=== PATIENT | female | born 1950 | race Caucasian/White ===

== ENCOUNTER → 2017-04-19 | Outpatient (CLI) | payer MEDICARE, OTHER ==
[~2017-04-19] MED LIST: ACET500C PO; ALPR0.5T3 PO; BENT10CA PO; BISA10SU PR; BISA5TAB7 PO; BRIN10TA PO; CARB50IN13 IV; DEXA4TA PO; GASTROGRAFIN SOLUTION 30ML (Q9963) As Ordered ONE; ISOVUE-370 76% 100ML VIAL (Q9967) As Ordered ONE; LACT10SO29 PO; METH5TA PO; MIRA33504 PO; MORP15TA2 PO; PRIL20CA9 PO; SENN8.6T8 PO; ZOFR8TAB PO; [UNRECOGNIZED DRUG - CODE] IV
--- NOTE | 2017-04-19 16:32 | REP ---
CT of the chest with IV contrast: Comparisons are 11/03/2015 and 07/06/2016. There are no lung masses or nodules. There is a focal zone of parenchymal scarring in the posterior sulcus of the right lower lobe, unchanged from 07/06/2016. There are no acute infiltrates. There are no pleural effusions. There is no mediastinal or hilar adenopathy. There is no axillary adenopathy. Thoracic aorta is unremarkable. Cardiac size normal. There is no pericardial effusion. On the coronal images. There is mild thickening of the hepatic capsule, decreased from 11/03/2015 and not as nodular as on 11/03/2015. A there is a similar appearance to 07/06/2016. Impression: No evidence of metastatic disease, adenopathy or pleural effusion. There is a focal parenchymal scar in the posterior sulcus of the right lower lobe. The capsular thickening in the dome of the liver is decreased from 11/03/2015 and is similar appearance to 07/06/2016. Signed by Jairo Ren MD 04/19/2017 04:24 P
--- NOTE | 2017-04-19 16:48 | REP ---
CT of the abdomen pelvis without with IV contrast and with bowel contrast. Multiphase scanning after IV contrast: Comparisons are 07/06/2016 and 11/03/2015. The capsular thickening of the liver has significantly decreased from 2015. Is similar to 07/06/2016. On the current study there is a subcapsular 3.9 cm cyst along the lateral margin of the liver, not present on the comparison studies. No hepatic parenchymal masses are identified. They are enhancing nodules along the wall of the gallbladder particularly at the fundus compatible with metastatic implants. These have increased in size from 11/03/2015. They were not present on 07/06/2016. There are numerous confluent enlarged mesenteric nodes at the tip of the liver, increased in size and number from 11/03/2015. They were not present on 07/06/2016. There are other mesenteric nodes in the left upper quadrant adjacent to the spleen, not present previously. The pancreas and spleen are otherwise unremarkable. The adrenals and kidneys are unremarkable. Abdominal aorta is unremarkable. There is no periaortic/retroperitoneal adenopathy. There is no adenopathy in the pelvis. There is a hysterectomy. Vaginal cuff and adnexa are unremarkable. There is a small volume of ascites in the cul-de-sac. Urinary bladder is unremarkable. There is no bowel distension. The pelvic bowel loops are unremarkable. Impression: The capsular thickening of the liver is unchanged from 07/06/2016 and has decreased from 11/03/2015. There are numerous confluent enlarged mesenteric nodes at the tip of the liver and adjacent to the spleen, not present on 07/06/2016 but increased in number and size from 11/03/2015. Small volume of ascites in the pelvis. There is no retroperitoneal or pelvic adenopathy. There are no lytic, blastic or destructive skeletal lesions. There is a small density posteriorly in the left iliac wing, unchanged from 11/03/2015, likely a bone island. Signed by Jairo Ren MD 04/19/2017 04:40 P
== END ==
LOC: M RAD 14:22
PROVIDERS: ATTEND Obstetrics & Gynecology Gynecologic Oncology
DX: C54.1 Malignant neoplasm of endometrium (principal); R93.2 Abnormal findings on diagnostic imaging of liver and biliary tract; R18.8 Other ascites
CPT/HCPCS: 71260; 74178; Q9963; Q9967

== ENCOUNTER → 2017-08-30 | Outpatient (CLI) | payer MEDICARE, OTHER ==
[~2017-08-30] MED LIST changes: -ACET500C PO; -ALPR0.5T3 PO; -BENT10CA PO; -BISA10SU PR; -BISA5TAB7 PO; -BRIN10TA PO; -CARB50IN13 IV; -DEXA4TA PO; +GASTROGRAFIN SOLUTION 30ML (Q9963) As Ordered; -GASTROGRAFIN SOLUTION 30ML (Q9963) As Ordered ONE; +ISOVUE-370 76% 100ML VIAL (Q9967) As Ordered; -ISOVUE-370 76% 100ML VIAL (Q9967) As Ordered ONE; -LACT10SO29 PO; -METH5TA PO; -MIRA33504 PO; -MORP15TA2 PO; -PRIL20CA9 PO; -SENN8.6T8 PO; -ZOFR8TAB PO; -[UNRECOGNIZED DRUG - CODE] IV
== END ==
LOC: M RAD 10:46
DX: C54.1 Malignant neoplasm of endometrium (principal)
CPT/HCPCS: Q9963

== ENCOUNTER → 2017-10-31 | Outpatient (CLI) | payer MEDICARE, OTHER | LOC: M RAD 08:21 | DX: C56.9 Malignant neoplasm of unspecified ovary (principal); C78.6 Secondary malignant neoplasm of retroperitoneum and peritoneum | CPT/HCPCS: Q9963 ==

== ENCOUNTER → 2018-01-02 | Outpatient (CLI) | payer MEDICARE, OTHER | LOC: M RAD 12:20 | DX: C54.1 Malignant neoplasm of endometrium (principal) | CPT/HCPCS: Q9963 ==

== ENCOUNTER → 2018-03-06 | Outpatient (CLI) | payer MEDICARE, OTHER | LOC: M RAD 08:45 | DX: C54.1 Malignant neoplasm of endometrium (principal); R59.0 Localized enlarged lymph nodes | CPT/HCPCS: Q9963 ==

== ENCOUNTER → 2018-03-23 | Outpatient (REF) | payer MEDICARE, OTHER ==
[2018-03-23 15:56] LABS: CA 125 24.1 U/ML (<30.2)
== END ==
LOC: M LAB REF 13:18
DX: C54.1 Malignant neoplasm of endometrium (principal)
CPT/HCPCS: 86304

== ENCOUNTER → 2018-06-15 | Outpatient (CLI) | payer MEDICARE, OTHER | LOC: M RAD 11:01 | DX: C54.1 Malignant neoplasm of endometrium (principal) | CPT/HCPCS: Q9963 ==

== ENCOUNTER → 2018-08-31 | Outpatient (REF) | payer MEDICARE, OTHER ==
[~2018-08-31] MED LIST changes: +ACET500C PO; +ALPR0.5T3 PO; +BENT10CA PO; +BISA10SU PR; +BISA5TAB7 PO; +BRIN10TA PO; +CARB50IN13 IV; +DEXA4TA PO; +DULO1CAP2 PO; +GABA-843 PO; -GASTROGRAFIN SOLUTION 30ML (Q9963) As Ordered; -ISOVUE-370 76% 100ML VIAL (Q9967) As Ordered; +LACT10SO29 PO; +LEVO500T3 PO; +METH5TA PO; +MIRA33504 PO; +MORP15TA2 PO; +PRIL20CA9 PO; +REST0.05 OD; +REST0.05 OP; +SENN8.6T9 PO; +ZOFR8TAB24 PO; +[UNRECOGNIZED DRUG - CODE] IV
[2018-08-31 10:48] LABS: TOTAL PROTEIN 5.8 GM/DL (6.4-8.2)
[2018-08-31 10:55] LABS: VITAMIN B12 LEVEL 402 PG/ML
[2018-08-31 10:56] LABS: FOLATE 14.5 NG/ML
[2018-09-05 07:21] LABS: ALBUMIN 3.79 GM/DL (3.29-5.55); ALBUMIN % 65.4 % (55.8-66.1); ALPHA-1-GLOBULIN % 4.7 % (2.9-4.9); ALPHA-1-GLOBULINS 0.27 GM/DL (0.17-0.41); ALPHA-2-GLOBULINS 0.81 GM/DL (0.42-0.99); BETA-1-GLOBULINS 0.37 GM/DL (0.28-0.60); BETA-1-GLOBULINS % 6.3 % (4.7-7.2); BETA-2-GLOBULINS 0.23 GM/DL (0.19-0.55); BETA-2-GLOBULINS % 3.9 % (3.2-6.5); GAMMA GLOBULIN % 5.7 % (11.1-18.8); GAMMA GLOBULINS 0.33 GM/DL (0.65-1.58)
[2018-09-05 19:10] LABS: CERULOPLASMIN 28.7 mg/dL (19.0-39.0); VITAMIN B1 LEVEL WHOLE BLOOD 79.4 nmol/L (66.5-200.0); VITAMIN E(ALPHA TOCOPHEROL) 12.2 mg/L (9.0-29.0); VITAMIN E(GAMMA TOCOPHEROL) 2.7 mg/L (0.5-4.9)
== END ==
LOC: M LAB REF 09:58
PROVIDERS: ATTEND Psychiatry & Neurology Neurology
DX: G62.9 Polyneuropathy, unspecified (principal); E53.8 Deficiency of other specified B group vitamins; E51.9 Thiamine deficiency, unspecified; Z77.018 Contact with and (suspected) exposure to other hazardous metals

== ENCOUNTER → 2018-09-26 | Outpatient (CLI) | payer MEDICARE, OTHER ==
[~2018-09-26] MED LIST changes: +DULO30CA PO; +GASTROGRAFIN SOLUTION 30ML (Q9963) As Ordered ONE; +ISOVUE-370 76% 100ML VIAL (Q9967) As Ordered ONE
--- NOTE | 2018-09-26 14:07 | REP ---
CT of the chest with IV contrast: Comparisons are 03/06/2018 and 06/15/2018. There are no acute infiltrates. No pleural effusions. There is chronic fibro linear scarring in the left lower lobe and lingula, unchanged. A small bilateral lower lobe pleural-based nodular densities identified previously have decreased in size. There is bilateral hilar adenopathy not significantly changed measuring up to 14 mm short axis on the right and 12 mm short axis on the left. There is no mediastinal lymph node enlargement. There is no axillary lymph node enlargement. There are no other lung nodules or masses. There are no acute infiltrates or effusions. Impression: Enlarged hilar nodes bilaterally that appear stable from the prior studies. No lung nodules or masses. The small pleural based nodules identified previously in the lower lobes have decreased in size. Chronic curvilinear scarring in the left lower lobe and lingula is unchanged. There is no significant interval change. Electronically Signed by Jairo Ren MD 09/26/2018 01:58 P
--- NOTE | 2018-09-26 14:29 | REP ---
CT of the abdomen and pelvis with IV and oral contrast: Comparison is 06/15/2018. The hepatic parenchyma is homogeneous. The gallbladder, pancreas and spleen are unremarkable. The adrenals, kidneys and abdominal aorta are unremarkable. There is no periaortic adenopathy or mass. There are multiple small omental/peritoneal implants on the right versus mesenteric nodes, not significantly changed. Nodular densities in the axilla are unchanged of uncertain significance. There is a hysterectomy. Vaginal cuff and adnexa are otherwise unremarkable. The bladder is unremarkable. Bowel and mesentery are unremarkable. No ascites. Impression: The mesenteric/omental and a pelvic and nodular densities are stable and unchanged. No ascites. No mass. No interval change. Half sign taking Electronically Signed by Jairo Ren MD 09/26/2018 02:21 P
== END ==
LOC: M RAD 11:22
PROVIDERS: ATTEND Internal Medicine Hematology & Oncology
DX: C54.1 Malignant neoplasm of endometrium (principal); R91.8 Other nonspecific abnormal finding of lung field; J98.4 Other disorders of lung
CPT/HCPCS: 71260; 74177; Q9963; Q9967

== ENCOUNTER → 2018-09-28 | Outpatient (CLI) | payer MEDICARE, OTHER ==
[~2018-09-28] MED LIST changes: -GASTROGRAFIN SOLUTION 30ML (Q9963) As Ordered ONE; -ISOVUE-370 76% 100ML VIAL (Q9967) As Ordered ONE
[2018-09-28 12:43] LABS: TOTAL PROTEIN,RANDOM URINE 6.7 MG/DL (0.0-12.0)
[2018-09-28 12:56] LABS: HEMOGLOBIN A1c 5.4 %
[2018-10-04 08:06] LABS: ANTI MAG LEVEL <1:10 titer (.)
== END ==
LOC: M LAB 10:38
PROVIDERS: ATTEND Psychiatry & Neurology Neurology
DX: G62.9 Polyneuropathy, unspecified (principal); E11.9 Type 2 diabetes mellitus without complications; C54.1 Malignant neoplasm of endometrium

== ENCOUNTER → 2018-12-24 | Outpatient (REF) | payer MEDICARE, OTHER ==
[~2018-12-24] MED LIST changes: -DULO30CA PO; +DULO30CA9 PO; +PACL1INJ2 IV; +SENN1TAB36 PO; -SENN8.6T9 PO; -[UNRECOGNIZED DRUG - CODE] IV
== END ==
LOC: M LAB REF 12:29
PROVIDERS: ATTEND Physician Assistant
DX: C56.9 Malignant neoplasm of unspecified ovary (principal)

== ENCOUNTER → 2019-05-13 | Outpatient (CLI) | payer MEDICARE, OTHER ==
[~2019-05-13] MED LIST changes: -DULO1CAP2 PO; +DULO1CAP5 PO; +GASTROGRAFIN SOLUTION 30ML (Q9963) As Ordered ONE; +ISOVUE-370 76% 100ML VIAL (Q9967) As Ordered ONE
--- NOTE | 2019-05-13 10:32 | REP ---
Clinical: Endometrial carcinoma. Restaging. Technique: Axial contrast enhanced images from the thoracic inlet to the upper abdomen with coronal and sagittal re-formations using 100 ml Isovue 370 intravenous contrast material. Comparison: 02/04/2019. Findings: Chronic stable linear scarring at the right base and lingula along with mild chronic diffuse interstitial changes are again appreciated. No consolidation, significant nodule, or mass lesion identified. Prominent bilateral hilar lymph nodes measuring up to approximately 12-14 mm again noted and similar to prior examination. No effusion. No pneumothorax. Tracheobronchial tree is patent. Mediastinum demonstrates normal thoracic aorta, pulmonary vasculature and heart/pericardium. Subtle atherosclerotic changes to the coronary arteries noted. Musculoskeletal structures are intact without focal abnormality. Impression: Stable chronic changes at the lingula and right base. Stable hilar lymph nodes. No acute mediastinal or pleuroparenchymal process appreciated. Electronically Signed by Jules Grande MD 05/13/2019 10:24 A
--- NOTE | 2019-05-13 10:41 | REP ---
Clinical: Endometrial carcinoma. Restaging. Technique: Axial contrast enhanced images from the lung bases to the pubic symphysis using oral (per protocol) and 100 ml Isovue 370 intravenous contrast material. Precontrast and delayed images of the abdomen obtained along with coronal and sagittal re-formations. Comparison: 02/04/2019, 09/26/2018. Findings: Scattered peritoneal metastatic nodules and soft tissue mass lesions are identified and increased when compared to prior examination. As example, the largest metastatic lesion is identified along the anterior lower abdomen and measures roughly 2.1 cm maximal diameter (image 76) along with increased metastatic nodules identified in the infrahepatic right lower abdomen (images 60 - 72). There also appears to be enlarging nodular soft tissue in the left hemipelvis measuring roughly approximately 2.3 cm maximal diameter (images 108 - 118). Liver, spleen, pancreas, gallbladder, bilateral adrenal glands and kidneys are normal / stable. The enteric system is without obstruction or acute inflammatory process. Colonic/sigmoid diverticula noted without acute diverticulitis. Pelvis demonstrates normal bladder and evidence for prior hysterectomy. No ascites. No free air. No intraperitoneal or retroperitoneal adenopathy. Abdominal aorta and vasculature without aneurysm or dissection. Musculoskeletal structures demonstrate degenerative changes without focal abnormality. Impression: 1. Increased intraperitoneal and pelvic metastatic implants. 2. Diverticulosis without acute diverticulitis. 3. No ascites. Electronically Signed by Jules Grande MD 05/13/2019 10:34 A
== END ==
LOC: M RAD 08:16
PROVIDERS: ATTEND Internal Medicine Hematology & Oncology
DX: C54.1 Malignant neoplasm of endometrium (principal); J84.9 Interstitial pulmonary disease, unspecified; I25.10 Atherosclerotic heart disease of native coronary artery without angina pectoris; K57.30 Diverticulosis of large intestine without perforation or abscess without bleeding; C78.6 Secondary malignant neoplasm of retroperitoneum and peritoneum
CPT/HCPCS: 71260; 74178; Q9963; Q9967

== ENCOUNTER → 2019-06-07 | Outpatient (CLI) | payer MEDICARE, OTHER ==
[~2019-06-07] MED LIST changes: -GASTROGRAFIN SOLUTION 30ML (Q9963) As Ordered ONE; -ISOVUE-370 76% 100ML VIAL (Q9967) As Ordered ONE
--- NOTE | 2019-06-07 20:27 | ECHO ---
DATE OF PROCEDURE: 06/07/2019 Date of : 1950 Age: 68 Gender: Female Height: 67 inches Weight: 183 pounds Body surface area: 1.95 meters squared Outpatient. REFERRING PHYSICIAN: Dr. Matthew Callaway INDICATION: Potentially cardiotoxic chemotherapy. MEASUREMENTS: 2D Measurements: RV: 3.4 cm LV: 4.6 cm Septum: 1.0 cm Posterior wall: 0.9 cm Aortic root: 2.6 cm LA: 3.6 cm LVEF: 75% Doppler Measurements: AV: 1.23 meters per second LVOT: 1.09 meters per second LVOT diameter: 2.0 cm MV-E: 48, A: 54, EA ratio: 0.8 Early mitral deceleration time: 197 milliseconds E prime medial: 6.7, A prime medial: 7.0, E prime lateral: 10.9 Average E/E prime ratio: 5.5 Pulmonary capillary wedge pressure: 8.3 mmHg PV: 0.9 meters per second Pulmonary artery acceleration time: 120 milliseconds RVSP: 29 mmHg IVC: 1.5 cm COMMENTS: Normal sinus rhythm/sinus bradycardia without intraventricular conduction disturbance. M-mode and two-dimensional echocardiography was performed with pulsed, continuous wave, color flow and tissue Doppler studies. Normal left ventricular size, wall thickness and hyperkinetic wall motion. Normal left atrial size with grade 2 left ventricular (LV) diastolic dysfunction but currently normal estimated mean left atrial pressure (physiologic for age). Normal right heart chamber sizes and motion and estimated pulmonary arterial pressure. Normal inferior vena cava (IVC) size and collapse against an elevated central venous pressure. Mild aortic valvular sclerosis without functional abnormality. Normal aortic diameters. Slightly thickened mitral annulus but normal leaflet excursion and no posterior systolic buckling. Only trace mitral insufficiency. Normal appearing tricuspid valve with mild insufficiency. No apparent intracardiac mass or pericardial effusion. MTDD
== END ==
LOC: M CARPUL 10:47
PROVIDERS: ATTEND Internal Medicine Hematology
DX: C54.1 Malignant neoplasm of endometrium (principal); R00.1 Bradycardia, unspecified; I36.1 Nonrheumatic tricuspid (valve) insufficiency

== ENCOUNTER → 2019-07-24 | Outpatient (CLI) | payer MEDICARE, OTHER ==
[~2019-07-24] MED LIST changes: +GASTROGRAFIN SOLUTION 30ML (Q9963) As Ordered ONE; +IBUP1TAB6 PO; +ISOVUE-370 76% 100ML VIAL (Q9967) As Ordered ONE; +PROC10TA4 PO
--- NOTE | 2019-07-24 16:55 | REP ---
CT CHEST WITH CONTRAST: TECHNIQUE: Axial contrast enhanced images from the thoracic inlet to the upper abdomen using 100 mL Isovue 370 intravenous contrast material with multiplanar reformations. COMPARISON: 05/13/2019 There is a stable 3 mm nodule anteriorly in the right upper lobe. There are mild stable fibro atelectatic changes in both lower lobes. No new parenchymal abnormality is seen. Normal size mediastinal and hilar lymph nodes are present. There is no axillary adenopathy. There is no thoracic aortic aneurysm or dissection. The heart is normal in size. There is no pleural or pericardial effusion. There are degenerative changes of the spine. IMPRESSION: Stable chronic findings. No change since prior study of 05/13/2019. Electronically Signed by Jairo Arciniega MD 07/24/2019 08:04 P
--- NOTE | 2019-07-24 17:17 | REP ---
CT ABDOMEN AND PELVIS WITH ORAL AND IV CONTRAST: TECHNIQUE: Axial contrast enhanced images from the lung bases to the pubic symphysis using 100 mL Isovue 370 intravenous contrast material with multiplanar reformations. COMPARISON: 02/04/2019 as well as other prior exams. The liver demonstrates no mass. The spleen demonstrates multiple tiny hypodensities throughout which are not definitely seen on prior studies. I cannot exclude metastatic disease to the spleen. Adrenal glands demonstrate no mass. Pancreas is unremarkable. Small cyst is seen anteriorly in the left kidney. No periaortic adenopathy is seen and there is no abdominal aortic aneurysm. There is no free air or free fluid. There is significant increase in omental and mesenteric nodules when compared to prior study. Multiple new nodules are seen in the subhepatic region, the largest is 1.5 cm in diameter. A dominant midline soft tissue nodule has irregular margins, in the lower abdomen, measuring 2.7 cm in diameter. Multiple small nodules are seen in the left upper quadrant up to 1 cm in diameter, located in the omentum and peritoneal space. New nodule is seen in the left adnexal region which is somewhat elongated. At its epicenter it measures 2.8 x 2.1 cm. No other pelvic mass is seen. There is sigmoid diverticulosis without acute diverticulitis. There also appear to be small implants on the fundus of the gallbladder posteriorly. Stable bone lesion since 2016 again noted in the proximal right femur. IMPRESSION: Significant increase in size of right upper quadrant peritoneal implants with several new left upper quadrant implants and a central midline mesenteric nodule. This is in the lower abdomen in the midline. Increased size of left pelvic soft tissue mass. Multiple new subcentimeter hypodense nodules in the spleen. I cannot rule out metastatic disease. Electronically Signed by Jairo Arciniega MD 07/24/2019 08:05 P
== END ==
LOC: M RAD 10:47
PROVIDERS: ATTEND Internal Medicine Hematology
DX: C54.1 Malignant neoplasm of endometrium (principal); R91.1 Solitary pulmonary nodule; N28.1 Cyst of kidney, acquired; K57.30 Diverticulosis of large intestine without perforation or abscess without bleeding; D73.9 Disease of spleen, unspecified
CPT/HCPCS: 71260; 74177; Q9963; Q9967

== ENCOUNTER 2019-08-05 12:37 | Day surgery (SDC) | payer MEDICARE, OTHER ==
[~2019-08-05] VITALS: Ht 170.2 cm; Wt 78.9 kg
[~2019-08-05 12:37] MED LIST changes: -GASTROGRAFIN SOLUTION 30ML (Q9963) As Ordered ONE; -ISOVUE-370 76% 100ML VIAL (Q9967) As Ordered ONE; +NS 1,000 ML IV ONE; +SENN1TAB8 PO; +SENN8.6T58 PO
[2019-08-05] MEDS ORDERED: propofoL 200 MG/20 ML VIAL As Ordered ONE ×2 (13:56→14:25)
[2019-08-05] MEDS ORDERED: LIDOCAINE 2% INJ 100 MG/5 ML SDV (FOR ANES.) As Ordered ONE (13:56)
--- NOTE | 2019-08-05 14:17 | ROOR ---
Patient Name: Haleigh Meade Procedure Date: 08/05/2019 1:59 PM Date of : 1950 Age: 68 Room: [facility] Gender: Female Note Status: Finalized Procedure: Upper Endoscopy + Biopsies Indications: Epigastric abdominal pain, Heartburn, Early satiety Providers: Jorge Blandon MD Referring MD: Brayan Simms MD Requesting Provider: Medicines: Monitored Anesthesia Care Complications: No immediate complications. Procedure: Pre-Anesthesia Assessment: - The heart rate, respiratory rate, oxygen saturations, blood pressure, adequacy of pulmonary ventilation, and response to care were monitored throughout the procedure. The Endoscope was introduced through the mouth, and advanced to the second part of duodenum. The upper GI endoscopy was accomplished without difficulty. The patient tolerated the procedure well. Findings: The Z-line was regular and was found 35 cm from the incisors. Multiple biopsies were obtained with cold forceps for evaluation to rule out Partida's Esophagus randomly at the gastroesophageal junction. A small hiatal hernia was present. No other significant abnormalities were identified in a careful examination of the stomach. Biopsies were taken with a cold forceps in the gastric antrum for Helicobacter pylori testing. The exam of the duodenum was otherwise normal. Impression: - Z-line regular, 35 cm from the incisors. - Small hiatal hernia. - Multiple biopsies were obtained at the gastroesophageal junction. - Biopsies were taken with a cold forceps for Helicobacter pylori testing. - The examination was otherwise normal. Recommendation: - Patient has a contact number available for emergencies. The signs and symptoms of potential delayed complications were discussed with the patient. Return to normal activities tomorrow. Written discharge instructions were provided to the patient. - High fiber diet. - Discharge patient to home. - Follow an antireflux regimen. - Await pathology results. - Telephone GI clinic for pathology results in 1 week. - Return to referring physician. - The findings and recommendations were discussed with the patient's family. Jorge Blandon MD Jorge Blandon MD 08/05/2019 2:17:05 PM Electronically signed by Jorge Blandon MD Number of Addenda: 0 Note Initiated On: 08/05/2019 1:59 PM Estimated Blood Loss: Estimated blood loss: none.
--- NOTE | 2019-08-05 14:38 | ROOR ---
Patient Name: Haleigh Meade Procedure Date: 08/05/2019 2:00 PM Date of : 1950 Age: 68 Room: [facility] Gender: Female Note Status: Finalized Procedure: Total Colonoscopy to Cecum Indications: Abdominal pain in the right lower quadrant, Change in bowel habits Providers: Jorge Blandon MD Referring MD: Brayan Simms MD Requesting Provider: Medicines: Monitored Anesthesia Care Complications: No immediate complications. Procedure: Pre-Anesthesia Assessment: - The heart rate, respiratory rate, oxygen saturations, blood pressure, adequacy of pulmonary ventilation, and response to care were monitored throughout the procedure. The Colonoscope was introduced through the anus and advanced to the cecum, identified by appendiceal orifice and ileocecal valve. The colonoscopy was performed without difficulty. The patient tolerated the procedure well. The quality of the bowel preparation was excellent. Findings: The perianal and digital rectal examinations were normal. Non-bleeding internal hemorrhoids were found during retroflexion. The hemorrhoids were small and Grade I (internal hemorrhoids that do not prolapse). Multiple small and large-mouthed diverticula were found in the recto-sigmoid colon, sigmoid colon and descending colon. The exam was otherwise without abnormality on direct and retroflexion views. Impression: - Non-bleeding internal hemorrhoids. - Diverticulosis in the recto-sigmoid colon, in the sigmoid colon and in the descending colon. - The examination was otherwise normal on direct and retroflexion views. - No specimens collected. - The exam was otherwise normal to the cecum. Recommendation: - Patient has a contact number available for emergencies. The signs and symptoms of potential delayed complications were discussed with the patient. Return to normal activities tomorrow. Written discharge instructions were provided to the patient. - High fiber diet. - Discharge patient to home. - Continue present medications. - Repeat colonoscopy in 10 years for screening purposes. - Return to referring physician. - The findings and recommendations were discussed with the patient's family. Jorge Blandon MD Jorge Blandon MD 08/05/2019 2:38:15 PM Electronically signed by Jorge Blandon MD Number of Addenda: 0 Note Initiated On: 08/05/2019 2:00 PM Estimated Blood Loss: Estimated blood loss: none.
[2019-08-05 15:17] VITALS: BP 140/74
[2019-08-08] MEDS ORDERED: LEVA750T7 PO (16:32)
== END 2019-08-05 15:19 | disposition home or self-care (01) ==
LOC: M OPP 12:37
PROVIDERS: ATTEND Internal Medicine Gastroenterology
DX: K64.0 First degree hemorrhoids (principal); R10.31 Right lower quadrant pain; R19.4 Change in bowel habit; K57.30 Diverticulosis of large intestine without perforation or abscess without bleeding; K44.9 Diaphragmatic hernia without obstruction or gangrene; R10.13 Epigastric pain; R68.81 Early satiety; Z79.899 Other long term (current) drug therapy; Z88.0 Allergy status to penicillin; Z88.2 Allergy status to sulfonamides; Z91.048 Other nonmedicinal substance allergy status

== ENCOUNTER 2019-08-15 20:13 | Inpatient (IN) | payer MEDICARE, OTHER ==
[~2019-08-15] VITALS: Ht 170.2 cm; Wt 80.6 kg
[~2019-08-15 20:13] MED LIST changes: +LEVA750T7 PO; -NS 1,000 ML IV ONE
[2019-08-15] MEDS ORDERED: SODIUM CHLORIDE 0.9% INJ 10 ML SYR IV PRN (22:00)
[2019-08-15] MEDS ORDERED: ACETAMINOPHEN TAB 650MG DOSE (2X325MG) PO ONE (22:00)
[2019-08-15 22:46] LABS: BASO % 0.3 % (0.0-1.0); EOS % 0.6 % (0.0-3.0); HEMATOCRIT 32.7 % (36.0-47.0); HEMOGLOBIN 10.7 g/dl (12.0-15.5); LYMPH # 0.7 10^3/uL (1.5-5.0); LYMPH % 9.9 % (24.0-44.0); MEAN CORPUSCULAR HEMOGLOBIN 29.2 pg (27.0-33.0); MEAN CORPUSCULAR HGB CONC 32.7 g/dl (32.0-36.5); MEAN CORPUSCULAR VOLUME 89.1 fl (80.0-96.0); MONO # 0.5 10^3/uL (0.0-0.8); MONO % 7.4 % (0.0-5.0); NEUTROPHILS # 5.5 10^3/uL (1.5-8.5); NEUTROPHILS % 81.4 % (36.0-66.0); PLATELET COUNT, AUTOMATED 231 10^3/uL (150-450); RED BLOOD COUNT 3.67 10^6/uL (4.00-5.40); WHITE BLOOD COUNT 6.8 10^3/uL (4.0-10.0)
[2019-08-15 23:07] LABS: CREATININE FOR GFR 1.13 MG/DL (0.55-1.30); POTASSIUM SERUM 4.1 MEQ/L (3.5-5.1)
--- NOTE | 2019-08-16 00:20 | REPVR ---
PROCEDURE INFORMATION: Exam: CT Chest Without Contrast Exam date and time: 08/15/2019 11:23 PM Age: 68 years old Clinical indication: Abnormal findings; Other: Cxr infiltrate? ; Additional info: ? Lll infiltrate on cxr TECHNIQUE: Imaging protocol: Computed tomography of the chest without contrast. 3D rendering: MIP and/or 3D reconstructed images were created by the technologist. Radiation optimization: All CT scans at this facility use at least one of these dose optimization techniques: automated exposure control; mA and/or kV adjustment per patient size (includes targeted exams where dose is matched to clinical indication); or iterative reconstruction. COMPARISON: CT Chest with contrast 07/24/2019 12:29 PM FINDINGS: Tubes, catheters and devices: Right Port-A-Cath through the internal jugular system extending to the distal superior vena cava. Thyroid: Inhomogeneous thyroid lobes. Lungs: Right upper lobe and lingular infiltrate and consolidation and minimal left lower lobe infiltrate and atelectasis consistent with pneumonia which is greatest in the lingula. Minimal right lower lobe fibro-atelectatic change. Pleural space: Unremarkable. No pneumothorax. No pleural effusion. Heart: Unremarkable. No cardiomegaly. No pericardial effusion. Pulmonary arteries: The main pulmonary artery measures 25 mm. Aorta: The ascending thoracic aorta measures 31 mm. Lymph nodes: Unremarkable. No enlarged lymph nodes. Bones/joints: Unremarkable. No acute fracture. Soft tissues: Unremarkable. IMPRESSION: 1. Lingular and to a lesser degree left upper lobe and left lower lobe infiltrate, consolidation and atelectasis consistent with pneumonia. 2. Right Port-A-Cath to the distal superior vena cava. 3. Minimal right lower lobe fibro-atelectatic change. Electronically signed by: Cb Matthews On 08/16/2019 00:19:33 AM
[2019-08-16] MEDS ORDERED: DOCU100C16 PO (00:53)
[2019-08-16] MEDS ORDERED: GABA-843 PO (00:53)
[2019-08-16] MEDS ORDERED: CEFEPIME HCL 2 GM in D5W MINI-BAG PLUS 50 ML IV ONE (01:15)
--- NOTE | 2019-08-16 01:25 | HPEPDOC ---
[facility] Medical History & Physical Date of Admission Aug 16, 2019 Date of Service: Aug 16, 2019 Primary Care Physician: Brayan Simms MD Attending Physician: JYOTHI MERRILL MD History and Physical TIME OF SERVICE: 2:20 AM CHIEF COMPLAINT: Fever HISTORY OF PRESENT ILLNESS: This is a 59-year-old female presents with complaints having a fever of 101.8 on Monday. She came to the hospital primarily because her oncologist told her she if has a fever, she should come. She had chemotherapy on August 08. She denies having chest pain, nausea, vomiting, diarrhea, headache, cough, back pain, or sick contacts. REVIEW OF SYSTEMS: 12 point review of systems negative except as listed in HPI PAST MEDICAL/ SURGICAL HISTORY: Stage IV Endometrial cancer, treated by peripheral neuropathy DJD. Status post total abdominal hysterectomy and bilateral salpingo-oophorectomy Status post shoulder surgery. Status post tonsillectomy. Status post port placement SOCIAL HISTORY: She doesn't smoke. 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 HOME MEDICATIONS: Please see below. PHYSICAL EXAMINATION: VITAL SIGNS: Please see below. GEN: well-nourished / well developed/ NAD INTEGUMENT: not flushed/ not jaundice HEENT: NCAT / sclera anicteric CVS: RRR/NMRG/ radial pulses intact / she has a port at the right upper chest LUNGS: able to speak full sentences without stopping to take a breath / no coughing / lungs are clear to auscultation bilaterally on room air / there is some dullness to percussion at the left lower back ABDOMEN: soft & not tender with palpation MSK/EXTREMITIES: range of motion intact in all 4 extremities NEURO: CN 2-12 are grossly intact / speech is not dysarthric PSYCH: alert and oriented to person place and time/ able to understand and follow all commands LABORATORY DATA: See below. IMAGING: CT chest " IMPRESSION: 1. Lingular and to a lesser degree left upper lobe and left lower lobe infiltrate, consolidation and atelectasis consistent with pneumonia. 2. Right Port-A-Cath to the distal superior vena cava. 3. Minimal right lower lobe fibro- atelectatic change. " MICROBIOLOGY: Please see below. ASSESSMENT: Ms. Meade is a 62 old female with a past medical hx of stage IV endometrial cancer who is admitted for management of left-sided community-acquired pneumonia. PLAN: 1. Left-sided community-acquired pneumonia She's generally symptomatic support for runny nose and fever (TMax 101.7) She is not hypoxic CT chest as above CURB 65 score to determine if pt should be admitted = 1 point = outpatient treatment is appropriate. Since she is immunosuppressed we will admit her to the inpatient unit at least for tonight Plan: admit to medical floor./ continuous pulse ox & supplemental O2/ f/u influenza, Legionella, strep pneumo, sputum & blood cx / abx / IVF / tessalon pearls / Acetaminophen PRN for fever 2. Normocytic normochromic anemia. Likely due to malignancy and/or chemotherapy. Hemoglobin is at baseline Plan: Follow-up reticulocyte #, iron panel w ferritin & stool occult / Hold ibuprofen 3. Stage IV endometrial cancer With neuropathy Plan: gabapentin/Follow up with oncologist as scheduled DVT PROPHYLAXIS: Heparin DISPOSITION: Home after more than 2 midnight's stay Vital Signs Vital Signs Date Time Temp Pulse Resp B/P (MAP) Pulse Ox O2 Delivery O2 Flow Rate FiO2 08/15/19 23:59 99.7 08/15/19 23:00 16 128/67 (87) 08/15/19 22:58 80 95 08/15/19 20:15 Room Air Laboratory Data Labs 24H Laboratory Tests 2 08/15/19 22:35: Immature Granulocyte % (Auto) 0.4, Neutrophils (%) (Auto) 81.4H, Lymphocytes (%) (Auto) 9.9L, Monocytes (%) (Auto) 7.4H, Eosinophils (%) (Auto) 0.6, Basophils (%) (Auto) 0.3, Neutrophils # (Auto) 5.5, Lymphocytes # (Auto) 0.7L, Monocytes # (Auto) 0.5, Eosinophils # (Auto) 0.0, Basophils # (Auto) 0.0, Nucleated Red Blood Cells % (auto) 0.0, Anion Gap 5L, Glomerular Filtration Rate 51.0, Calcium Level 8.0L 08/15/19 23:03: Urine Color STRAW, Urine Appearance CLEAR, Urine pH 7.0, Urine Specific Sheldon 1.008, Urine Protein NEGATIVE, Urine Glucose (UA) NEGATIVE, Urine Ketones NEGATIVE, Urine Blood NEGATIVE, Urine Nitrite NEGATIVE, Urine Bilirubin NEGATIVE, Urine Urobilinogen 0.2, Urine Leukocyte Esterase NEGATIVE, Urine WBC (Auto) 3, Urine RBC (Auto) 1, Urine Hyaline Casts (Auto) 0, Urine Bacteria (Auto) NEGATIVE, Urine Squamous Epithelial Cells 0, Urine Sperm (Auto) CBC/BMP Laboratory Tests 08/15/19 22:35 Microbiology Microbiology 08/15/19 Respiratory Virus Panel (PCR) ([facility]) - Final, Complete 08/15/19 Blood Culture, Received Pending 08/15/19 Blood Culture, Received Pending Home Medications Scheduled Docusate Sodium (Docusate Sodium) 100 Mg Capsule, 200 MG PO BID Gabapentin (Gabapentin) 300 Mg Capsule, 900 MG PO TID Ibuprofen (Ibuprofen) 600 Mg Tablet, 600 MG PO TID for pain with food Levofloxacin (Levaquin) 750 Mg Tablet, 1 TAB PO DAILY for urinary tract infection Take 750 mg po q day X 7 days Sennosides (Senna) 8.6 Mg Tablet, 2 TAB PO BID for constipation TAKE 2 TABS 2 TIMES A DAY Scheduled PRN Prochlorperazine Maleate (Prochlorperazine Maleate) 10 Mg Tablet, 10 MG PO Q6HP PRN for NAUSEA Allergies Coded Allergies: Penicillins (Verified Allergy, Intermediate, HIVES, 10/10/18) Sulfa (Sulfonamide Antibiotics) (Verified Allergy, Intermediate, HIVES, 10/10/18) TAPE (Unverified Allergy, Intermediate, RASH, 01/12/16) THE PLASTIC KIND carboplatin (Verified Allergy, Intermediate, hives, 08/02/19) erythromycin base (Verified Allergy, Intermediate, nausea/vomitting, 08/02/19) A-FIB/CHADSVASC A-FIB History Current/History of A-Fib/PAF?: No Current PO Anticoag Therapy: No JYOTHI MERRILL MD Aug 16, 2019 01:25
[2019-08-16 02:55] VITALS: BP 128/70
[2019-08-16] MEDS: DOCUSATE SODIUM 100 MG CAP PO SCH ×3 (02:59→20:06)
[2019-08-16] MEDS: NS 1,000 ML IV SCH ×2 (02:59→17:35)
[2019-08-16] MEDS: HEPARIN SOD (PORCINE) 5000 UNITS/ML VIAL (J1644 PER 1000UNITS) SC SCH ×3 (05:22→20:06)
[2019-08-16 06:00] VITALS: BP 135/79
[2019-08-16] MEDS ORDERED: PROCHLORPERAZINE 5 MG TAB (S0183) PO PRN (06:00)
[2019-08-16 07:02] LABS: PERCENT SATURATION 10.4 % (13.2-45.0)
--- NOTE | 2019-08-16 07:29 | REP ---
Portable chest, 10:21 p.m., single AP view with the patient sitting: Comparison is a chest CT 08/15/2019 and 07/24/2019. On the comparison CT of 08/15/2019. There are more infiltrates in the left upper lobe and left lower lobe and there is discoid atelectasis in the right lower lobe. On the portable study today there is a small nodule like density in the left upper lobe corresponding to a small infiltrate on the comparison CT 08/15/2020, not present on the CT of 07/25, 03/05/2020. Additionally, there is a faintly visible infiltrate inferiorly in the left lung. The right lung is clear. Cardiac size normal. The jannet, mediastinum, skeletal structures are unremarkable. There is a right IJ Ygdcir-U-Iunf catheter with the tip in the superior vena cava. Impression: Faintly visible left lung. Electronically Signed by Jairo Ren MD 08/16/2019 07:20 A
[2019-08-16] MEDS: SENNA 8.6 MG TAB (SENOKOT) PO SCH ×2 (08:07→20:06)
[2019-08-16] MEDS: GABAPENTIN 300 MG CAP PO SCH ×3 (08:07→20:06)
[2019-08-16 08:23] LABS: BASO % 0.4 % (0.0-1.0); EOS # 0.1 10^3/uL (0.0-0.5); EOS % 0.9 % (0.0-3.0); HEMATOCRIT 33.3 % (36.0-47.0); HEMOGLOBIN 10.2 g/dl (12.0-15.5); LYMPH # 0.6 10^3/uL (1.5-5.0); LYMPH % 10.8 % (24.0-44.0); MEAN CORPUSCULAR HEMOGLOBIN 28.3 pg (27.0-33.0); MEAN CORPUSCULAR HGB CONC 30.6 g/dl (32.0-36.5); MEAN CORPUSCULAR VOLUME 92.5 fl (80.0-96.0); MONO # 0.5 10^3/uL (0.0-0.8); MONO % 8.5 % (0.0-5.0); NEUTROPHILS # 4.3 10^3/uL (1.5-8.5); NEUTROPHILS % 78.7 % (36.0-66.0); PLATELET COUNT, AUTOMATED 219 10^3/uL (150-450); WHITE BLOOD COUNT 5.4 10^3/uL (4.0-10.0)
[2019-08-16 08:26] LABS: CREATININE FOR GFR 1.19 MG/DL (0.55-1.30); MAGNESIUM LEVEL 2.2 MG/DL (1.8-2.4)
[2019-08-16 10:00] VITALS: BP 134/63
[2019-08-16] MEDS: ACETAMINOPHEN TAB 650MG DOSE (2X325MG) PO PRN ×2 (11:48→19:39)
[2019-08-16] MEDS: CEFEPIME HCL 2 GM in D5W 50 ML IV SCH (13:08)
[2019-08-16 14:00] VITALS: BP 96/57
--- NOTE | 2019-08-16 15:20 | IPNPDOC ---
Text Note Date of Service The patient was seen on 08/16/19. NOTE Subjective: No any acute events overnight, fevers resolved, patient denies any pain Objective: VITAL SIGNS: Please see below. GENERAL APPEARANCE: Well-nourished, well-developed, not in apparent distress HEENT: Normocephalic, atraumatic. Mucous members moist and pink CARDIOVASCULAR: Regular rate and rhythm. No murmurs, rubs or gallops. Radial pulses are intact. There is no lower extremity edema LUNGS: Diminished lung sounds ABDOMEN: Abdomen is soft and nontender. MUSCULOSKELETAL: Range of motion is intact in all 4 extremities NEUROLOGICAL: Cranial nerves II-12 are grossly intact. Speech is not dysarthric Patient is 62 years old female with past history of stage IV endometrial cancer on chemotherapy admitted with fever. Community-acquired pneumonia Patient does not have cough, fever resolved, patient isn't hypoxic CT scan showed Lingular and to a lesser degree left upper lobe and left lower lobe infiltrate, consolidation and atelectasis consistent with pneumonia Continue cefepime #Anemia Hemoglobin is stable Normocytic, most likely secondary to malignancy and chemotherapy Recommended workup in the outpatient settings Stage IV endometrial cancer With neuropathy Follow-up with oncologist in the outpatient settings VS,Liyah, I+O VS, Liyah, I+O Laboratory Tests 08/15/19 22:35 08/16/19 06:12 08/16/19 06:14 Vital Signs Date Time Temp Pulse Resp B/P (MAP) Pulse Ox O2 Delivery O2 Flow Rate FiO2 08/16/19 14:00 98.4 86 18 96/57 (70) 93 Room Air I&O- Last 24 Hours up to 6 AM0 08/16/19 06:00 Intake Total 230 ml Balance 230 ml SHANTEL ZAVALA DO Aug 16, 2019 15:20
[2019-08-16 18:00] VITALS: BP 131/76
[2019-08-16 22:00] VITALS: BP 136/77
[2019-08-17 02:00] VITALS: BP 105/60
[2019-08-17] MEDS: CEFEPIME HCL 2 GM in D5W 50 ML IV SCH (02:00)
[2019-08-17] MEDS: ACETAMINOPHEN TAB 650MG DOSE (2X325MG) PO PRN (04:53)
[2019-08-17 05:51] LABS: HEMATOCRIT 31.9 % (36.0-47.0); HEMOGLOBIN 9.9 g/dl (12.0-15.5); MEAN CORPUSCULAR HEMOGLOBIN 28.5 pg (27.0-33.0); MEAN CORPUSCULAR VOLUME 91.9 fl (80.0-96.0); PLATELET COUNT, AUTOMATED 206 10^3/uL (150-450); RED BLOOD COUNT 3.47 10^6/uL (4.00-5.40)
[2019-08-17 06:00] VITALS: BP 127/73
[2019-08-17] MEDS: HEPARIN SOD (PORCINE) 5000 UNITS/ML VIAL (J1644 PER 1000UNITS) SC SCH (06:02)
[2019-08-17 06:13] LABS: CALCIUM LEVEL 7.9 MG/DL (8.8-10.2); CREATININE FOR GFR 1.11 MG/DL (0.55-1.30); MAGNESIUM LEVEL 2.1 MG/DL (1.8-2.4); POTASSIUM SERUM 3.9 MEQ/L (3.5-5.1)
[2019-08-17] MEDS: GABAPENTIN 300 MG CAP PO SCH (08:59)
[2019-08-17] MEDS: SENNA 8.6 MG TAB (SENOKOT) PO SCH (08:59)
[2019-08-17] MEDS: DOCUSATE SODIUM 100 MG CAP PO SCH (09:00)
[2019-08-17 10:00] VITALS: BP 114/57
[2019-08-17] MEDS ORDERED: AUGM875T28 PO (10:32)
[2019-08-17] MEDS ORDERED: AZIT500T5 PO (10:32)
[2019-08-17] MEDS ORDERED: ACET1TAB55 PO (10:32)
[2019-08-17] MEDS: NS 1,000 ML IV SCH (11:20)
[2019-08-17] MEDS ORDERED: SODIUM CHLORIDE 0.9% INJ 10 ML SYR IV PRN (11:30)
--- NOTE | 2019-08-17 15:29 | DS.PDOC ---
Discharge Summary General Date of Admission Aug 16, 2019 at 01:25 Date of Discharge 08/17/19 Discharge Summary PROCEDURES PERFORMED DURING STAY: None ADMITTING DIAGNOSES: Left-sided community-acquired pneumonia Normocytic normochromic anemia. DISCHARGE DIAGNOSES: Left-sided community-acquired pneumonia Normocytic normochromic anemia COMPLICATIONS/CHIEF COMPLAINT: Left Lower Lobe Pneumonia. HISTORY OF PRESENT ILLNESS: This is a 59-year-old female presents with complaints having a fever of 101.8 on Monday. She came to the hospital primarily because her oncologist told her she if has a fever, she should come. She had chemotherapy on August 08. She denies having chest pain, nausea, vomiting, diarrhea, headache, cough, back pain, or sick contacts. HOSPITAL COURSE: During hospital stay following issue addressed Community-acquired pneumonia Patient does not have cough, fever resolved, patient isn't hypoxic. Blood culture negative CT scan showed Lingular and to a lesser degree left upper lobe and left lower lobe infiltrate, consolidation and atelectasis consistent with pneumonia Patient received treatment with cefepime #Anemia Hemoglobin is stable Normocytic, most likely secondary to malignancy and chemotherapy Recommended workup in the outpatient settings Stage IV endometrial cancer With neuropathy Follow-up with oncologist in the outpatient settings DISCHARGE MEDICATIONS: Please see below. ALLERGIES: Please see below. PHYSICAL EXAMINATION ON DISCHARGE: VITAL SIGNS: Please see below. VITAL SIGNS: Please see below. GENERAL APPEARANCE: Well-nourished, well-developed, not in apparent distress HEENT: Normocephalic, atraumatic. Mucous members moist and pink CARDIOVASCULAR: Regular rate and rhythm. No murmurs, rubs or gallops. Radial pulses are intact. There is no lower extremity edema LUNGS: Diminished lung sounds ABDOMEN: Abdomen is soft and nontender. MUSCULOSKELETAL: Range of motion is intact in all 4 extremities NEUROLOGICAL: Cranial nerves II-12 are grossly intact. Speech is not dysarthric LABORATORY DATA: Please see below. IMAGING: PROCEDURE INFORMATION: Exam: CT Chest Without Contrast Exam date and time: 08/15/2019 11:23 PM Age: 68 years old Clinical indication: Abnormal findings; Other: Cxr infiltrate? ; Additional info: ? Lll infiltrate on cxr TECHNIQUE: Imaging protocol: Computed tomography of the chest without contrast. 3D rendering: MIP and/or 3D reconstructed images were created by the technologist. Radiation optimization: All CT scans at this facility use at least one of these dose optimization techniques: automated exposure control; mA and/or kV adjustment per patient size (includes targeted exams where dose is matched to clinical indication); or iterative reconstruction. COMPARISON: CT Chest with contrast 07/24/2019 12:29 PM FINDINGS: Tubes, catheters and devices: Right Port-A-Cath through the internal jugular system extending to the distal superior vena cava. Thyroid: Inhomogeneous thyroid lobes. Lungs: Right upper lobe and lingular infiltrate and consolidation and minimal left lower lobe infiltrate and atelectasis consistent with pneumonia which is greatest in the lingula. Minimal right lower lobe fibro-atelectatic change. Pleural space: Unremarkable. No pneumothorax. No pleural effusion. Heart: Unremarkable. No cardiomegaly. No pericardial effusion. Pulmonary arteries: The main pulmonary artery measures 25 mm. Aorta: The ascending thoracic aorta measures 31 mm. Lymph nodes: Unremarkable. No enlarged lymph nodes. Bones/joints: Unremarkable. No acute fracture. Soft tissues: Unremarkable. IMPRESSION: 1. Lingular and to a lesser degree left upper lobe and left lower lobe infiltrate, consolidation and atelectasis consistent with pneumonia. 2. Right Port-A-Cath to the distal superior vena cava. 3. Minimal right lower lobe fibro-atelectatic change. Electronically signed by: Caden Cheatham On 08/16/2019 00:19:33 AM DD: CADEN CHEATHAM MD 08/15/19 2323 DT: JAMIN 08/16/1918 DS: BERYL 08/16/1918 [~ rep ct labl] PROGNOSIS: Guarded ACTIVITY: As tolerated DIET: Regular DISCHARGE PLAN: Home DISPOSITION: 01 Home, Self-Care. DISCHARGE INSTRUCTIONS: See above ITEMS TO FOLLOWUP ON ON OUTPATIENT: With oncologist and PCP DISCHARGE CONDITION: Stable TIME SPENT ON DISCHARGE: Greater than minutes. Vital Signs/I&Os Vital Signs Date Time Temp Pulse Resp B/P (MAP) Pulse Ox O2 Delivery O2 Flow Rate FiO2 08/17/19 10:00 97.0 80 15 114/57 (76) 98 Room Air I&O- Last 24 Hours up to 6 AM 08/17/19 06:00 Intake Total 870 ml Output Total 1140 ml Balance -270 ml Laboratory Data Labs 24H Laboratory Tests 2 08/17/19 05:15: Nucleated Red Blood Cells % (auto) 0.0, Anion Gap 4L, Glomerular Filtration Rate 52.0, Calcium Level 7.9L, Magnesium Level 2.1 CBC/BMP Laboratory Tests 08/17/19 05:15 Microbiology Microbiology 08/16/19 Stool Occult Blood ([facility]) - Final, Complete 08/15/19 Respiratory Virus Panel (PCR) ([facility]) - Final, Complete 08/15/19 Blood Culture - Preliminary, Resulted No growth after 24 hours . All specim... 08/15/19 Blood Culture - Preliminary, Resulted No growth after 24 hours . All specim... Discharge Medications Scheduled Amoxicillin/Potassium Clav (Augmentin 875-125 Tablet) 1 Each Tablet, 1 TAB PO BID Azithromycin (Azithromycin) 500 Mg Tablet, 500 MG PO DAILY Docusate Sodium (Docusate Sodium) 100 Mg Capsule, 200 MG PO BID, (Reported) Gabapentin (Gabapentin) 300 Mg Capsule, 900 MG PO TID, (Reported) Ibuprofen (Ibuprofen) 600 Mg Tablet, 600 MG PO TID for pain, (Reported) with food Sennosides (Senna) 8.6 Mg Tablet, 2 TAB PO BID for constipation TAKE 2 TABS 2 TIMES A DAY Scheduled PRN Acetaminophen (Acetaminophen) 325 Mg Tablet, 650 MG PO Q4H PRN for PAIN OR FEVER Prochlorperazine Maleate (Prochlorperazine Maleate) 10 Mg Tablet, 10 MG PO Q6HP PRN for NAUSEA Allergies Coded Allergies: Penicillins (Verified Allergy, Intermediate, HIVES, 10/10/18) Sulfa (Sulfonamide Antibiotics) (Verified Allergy, Intermediate, HIVES, 10/10/18) TAPE (Unverified Allergy, Intermediate, RASH, 01/12/16) THE PLASTIC KIND carboplatin (Verified Allergy, Intermediate, hives, 08/02/19) erythromycin base (Verified Allergy, Intermediate, nausea/vomitting, 08/02/19) SHANTEL ZAVALA DO Aug 17, 2019 15:29
[2019-08-18] MEDS ORDERED: SODIUM CHLORIDE 0.9% INJ 10 ML SYR IV SCH (09:00)
== END 2019-08-17 12:21 | disposition home or self-care (01) | DRG 195 ==
LOC: M ED 20:13 → M ED INP 08-16 01:25 → ENRESERV 08-16 02:23 → M MSPAV 08-16 02:53
PROVIDERS: ADMIT Internal Medicine; ATTEND Internal Medicine
DX: J18.9 Pneumonia, unspecified organism (principal); C54.1 Malignant neoplasm of endometrium; D64.81 Anemia due to antineoplastic chemotherapy; G62.9 Polyneuropathy, unspecified; Z79.899 Other long term (current) drug therapy; Z88.0 Allergy status to penicillin; Z88.2 Allergy status to sulfonamides; Z88.8 Allergy status to other drugs, medicaments and biological substances

== ENCOUNTER → 2019-11-22 | Outpatient (CLI) | payer MEDICARE, OTHER ==
[~2019-11-22] MED LIST changes: +ACET1TAB55 PO; +AUGM0.0534; +AUGM0.0534 TOP; +AUGM875T28 PO; +AZIT500T5 PO; +CLOT1CRE71 TOP; +CVS1CRE47 EX; +DOCU100C16 PO; +FLUC200T2 PO; +SENN-80 PO; -SENN1TAB8 PO
--- NOTE | 2019-11-22 17:04 | ECHO ---
DATE OF PROCEDURE: 11/22/2019 REFERRING PHYSICIAN: Dr. Matthew Callaway INDICATION: Chemotherapy that may affect the heart, neoplasm of the endometrium. HEIGHT: 5 feet 7 inches WEIGHT: 176 pounds 2D MEASUREMENTS: LVOT: 2.0 cm Aortic root: 2.8 cm Left atrium: 4.0 cm Ventricular septum: 1.12 cm Posterior wall: 1.08 cm Left ventricle diastole: 4.3 cm Inferior vena cava 1.6 cm (more than 50% respiratory variation). DOPPLER MEASUREMENTS: No aortic regurgitation. No aortic stenosis. Aortic valve velocity: 125 cm/s LVOT velocity: 107 cm/s No mitral regurgitation. No mitral stenosis. Mitral E velocity: 62.1 cm/s Mitral A velocity: 77.1 cm/s Mitral deceleration time: 405 ms Very mild tricuspid regurgitation. Estimated right ventricle systolic pressure: 28-33 mmHg assuming a pressure of 5-10 mmHg. Mild pulmonic regurgitation. Pulmonary acceleration time: 144 ms MITRAL ANNULAR TISSUE DOPPLER: E prime septal: 6.2 cm/s E prime lateral: 9.36 cm/s DESCRIPTION: Rhythm was sinus. Image quality was fair. This was a 2D, M-mode, color flow Doppler and pulse wave Doppler examination and included mitral annular tissue Doppler. Speckle tracking with strain rate imaging was performed. CONCLUSIONS: 1. Normal left ventricle internal dimensions and wall thickness. Normal regional left ventricular (LV) wall motion and wall thickening. Normal LV systolic function. Left ventricular ejection fraction (LVEF) 65% by visual estimate. Normal peak systolic longitudinal strain. Grade 1 LV diastolic dysfunction (impaired relaxation filling pattern). 2. Mild left atrial enlargement. 3. No pericardial effusion. 4. Otherwise normal appearing echocardiogram Doppler.
== END ==
LOC: M CARPUL 08:46
PROVIDERS: ATTEND Internal Medicine Hematology
DX: C54.1 Malignant neoplasm of endometrium (principal); I51.7 Cardiomegaly

== ENCOUNTER → 2019-12-24 | Outpatient (CLI) | payer MEDICARE, OTHER ==
[~2019-12-24] MED LIST changes: +ATIV1TAB10 PO; -LACT10SO29 PO; +LACT20EL PO
--- NOTE | 2019-12-25 14:49 | REP ---
REASON FOR EXAM: Followup uterine cancer. COMPARISON: PET/CT 11/12/[address] examination of the chest 12/05/[address] of the abdomen and pelvis the same day reviewed. After the intravenous administration of 9.17 millicuries of FDG18, triplane whole body PET/CT was performed from the skull base to the mid thigh. The irregular nodule seen in the left hemipelvis on the CT scan of 12/05/2019 is hypermetabolic with a maximal SUV valve of 8.52. This abuts the sigmoid colon. The nodule cannot be differentiated from the colonic wall itself, both on this PET/CT fused exam and the standard CT/PET of 12/05/2019. Its standard CT appearance has remained stable for many years with CT scans from as far back as 04/19/2017, also reviewed. Its delineation from the bowel on the prior PET/CT of 11/12/2015 was unobtainable. Seen within the mesentery abutting multiple bowel loops anterior to the left of midline there is a potential additional hypermetabolic focus having a maximal SUV valve of 6.62 while, maximal SUV value of other large bowel loops are in the 4-5 SUV range. There are no other suspected areas of abnormal hypermetabolic activity seen in the neck, chest, abdomen or pelvis. IMPRESSION: 1. Although standard anatomical imaging shows little difference in the appearance of the nodule seen in the left hemipelvis as described above. It does have concerning SUV values. Whether or not this represents recurring or persistent malignancy versus inflammatory bowel change cannot be stated by this exam. Clinical evaluation and followup is suggested. 2. There is an additional area of potential hypermetabolic activity seen in the anterior mesentery on the left as described above and this too, is difficult to ascertain whether or not it represents bowel activity or abnormal farrukh activity within the mesentery. When this is compared to other bowel loops its SUV value is, however, much higher, which is somewhat worrisome. This also needs to be followed closely with repeat PET/CT. Review of anatomical imaging from prior CT scans does show a small nodule in the mesentery but again abutting or potentially arising from the transverse colon. Electronically Signed by Tommy Edwards DO 12/25/2019 05:05 P
== END ==
LOC: M PLARAD 15:04
PROVIDERS: ATTEND Physician Assistant
DX: C54.1 Malignant neoplasm of endometrium (principal)
CPT/HCPCS: 78815; A9552

== ENCOUNTER → 2020-03-10 | Outpatient (CLI) | payer MEDICARE, OTHER ==
[~2020-03-10] MED LIST changes: +CYCL1CAP2 PO; +LISI10TA4 PO; +ONDA8TAB10 PO; +PREP1SUP PR; +SIME125C4 PO
--- NOTE | 2020-03-24 15:08 | REP ---
PET CT HISTORY: Restaging endometrial carcinoma. TECHNIQUE: 59 minutes following the intravenous injection of an 8.02 mCi dose of F18 FDG, 3D PET CT study was acquired from the skull base to the proximal thighs. COMPARISON: PET CT studies from 12/24/2019 and 11/12/2015. PET CT FINDINGS: There is no abnormal uptake in the head and neck soft tissues. No abnormal uptake is seen in the thorax. There are, however, multiple recurrent foci of soft tissue uptake within the peritoneal cavity. In the left upper quadrant, there are small nodular soft tissue densities, which are hypermetabolic. Maximum SUV value 5.99. There is celiac axis farrukh focus of hypermetabolic uptake. Maximum SUV value 4.72. There is a focus in the mesenteric fat in the right lower quadrant with maximum SUV value 9.20. This soft tissue deposit measures 3.6 cm in right to left dimension x 0.8 cm in thickness. There is a farrukh focus in the left lower quadrant with maximum standard uptake value 7.7. This focus measures 1.6 cm. There is also a focus in the midline anteriorly in the pelvis with two adjacent 1 cm lymph nodes, which are also hypermetabolic, maximum SUV value 6.90. In the pelvis to the left of midline in the left adnexa, there is a hypermetabolic somewhat spiculated mass measuring 2.4 x 2.1 cm. Maximum standard uptake value here is 13.33. Scan is otherwise unremarkable. IMPRESSION: Recurrent multifocal hypermetabolic uptake in the upper and lower abdomen as above. MTDD
== END ==
LOC: M PLARAD 14:00
PROVIDERS: ATTEND Physician Assistant
DX: C54.1 Malignant neoplasm of endometrium (principal)
CPT/HCPCS: 78815; A9552

== ENCOUNTER → 2020-03-25 | Outpatient (CLI) | payer MEDICARE, OTHER ==
--- NOTE | 2020-03-30 08:32 | ECHO ---
DATE OF PROCEDURE: 03/25/2020 Age: 69 PATIENT LOCATION: Outpatient. REFERRING PROVIDER: Rena Damico MD REASON FOR STUDY: Malignant neoplasm of the endometrium, chemotherapy drug monitoring. 2D MEASUREMENTS: IVS 1.1 cm LV 4.3 cm LVPW 0.9 cm LA 3.6 cm Aorta 2.6 cm IVC 1.3 cm DOPPLER MEASUREMENT Peak velocity across the aortic valve 1.2 mm/s Peak velocity across the LVOT 1.0 mm/s Mitral E 0.4 Mitral A 0.7 with a ratio of 0.7 Maximum tricuspid valve velocity 2.4 mm/s 2D COMMENTS: 1. Normal left ventricular size, wall thickness, and a normal global left ventricular systolic function estimated at 65% to 70%. 2. Normal left atrium. Normal right atrium and right ventricle. 3. The atrial septum appeared to be normal without evidence of defect or shunt. 4. Normal aortic root. 5. There are findings consistent with left pleural effusion. No pericardial effusion seen. 6. Mildly calcified aortic valve with normal leaflet excursion. Mildly calcified mitral annulus with normal anterior mitral valve leaflet motion. Normal tricuspid valve and pulmonic valve. The proximal pulmonary artery branches were not well visualized. 7. The inferior vena cava was normal in size. Central venous pressure is most likely normal. 8. Doppler detects tract mitral regurgitation, mild tricuspid regurgitation. The calculated pulmonary artery systolic pressure varies between to 30 to 40 mmHg. Abnormal relaxation pattern was noted across the mitral valve leaflets, as well as the mitral valve annulus consistent with features of grade 1 left ventricular diastolic dysfunction. IMPRESSION: 1. Normal global left ventricular systolic function. There are some features of left ventricular diastolic dysfunction manifested by abnormal relaxation. 2. Aortic valve sclerosis without stenosis or aortic regurgitation. 3. Mitral annulus calcification with trace mitral regurgitation. 4. Mild tricuspid regurgitation with probably mild pulmonary hypertension. 5. There are features consistent with left pleural effusion. No pericardial effusion seen. MTDD
== END ==
LOC: M CARPUL 11:01
PROVIDERS: ATTEND Internal Medicine Medical Oncology
DX: I35.8 Other nonrheumatic aortic valve disorders (principal); I36.1 Nonrheumatic tricuspid (valve) insufficiency; I34.0 Nonrheumatic mitral (valve) insufficiency; C54.1 Malignant neoplasm of endometrium

== ENCOUNTER → 2020-04-20 | Outpatient (CLI) | payer MEDICARE, OTHER ==
[~2020-04-20] MED LIST changes: +GASTROGRAFIN SOLUTION 30ML (Q9963) As Ordered ONE; +ISOVUE-370 76% 100ML VIAL As Ordered ONE; -LISI10TA4 PO; -ONDA8TAB10 PO; -SIME125C4 PO
--- NOTE | 2020-04-27 17:57 | REP ---
CT CHEST WITH INTRAVENOUS (IV) CONTRAST HISTORY: Endometrial cancer. TECHNIQUE: CT chest performed following the intravenous administration of 100 mL of Isovue-370. Sagittal and coronal reconstruction views are performed. COMPARISON: Made with prior study of 12/05/2019. FINDINGS: Once again, there are stable mild scattered interstitial opacities, which are chronic in nature. There is no acute infiltrate or pulmonary nodule present. There is no mediastinal, hilar, or chest wall lymphadenopathy. Mild atherosclerotic calcifications are noted of the thoracic aorta without aneurysm. The heart is normal in size. There is no pleural or pericardial effusion. There are mild degenerative changes of the spine. IMPRESSION: Stable chronic findings. No acute change, with no pulmonary nodule or adenopathy. No infiltrate. MTDD
--- NOTE | 2020-04-27 17:58 | REP ---
CT ABDOMEN AND PELVIS WITH ORAL AND INTRAVENOUS (IV) CONTRAST COMPARISON: 12/05/2019. HISTORY: Endometrial cancer. TECHNIQUE: CT abdomen and pelvis performed following the administration of oral contrast, as well as the intravenous administration of 100 mL of Isovue-370. Sagittal and coronal reconstruction images are performed. FINDINGS: No liver mass is seen. Spleen is normal in size with no intrinsic abnormality. The adrenal glands demonstrate no nodule. No pancreatic mass is seen and there is no pancreatic duct dilatation. Gallbladder is grossly unremarkable. There is a subcentimeter cyst anteriorly in the mid left kidney. There is no hydronephrosis bilaterally. The abdominal aorta is normal in caliber with no aneurysm. No periaortic adenopathy is seen. However, there are increasing scattered peritoneal nodules present both on the right and the left mainly in the mid to upper abdomen. There are also a few scattered mesenteric and omental nodules. Findings have progressed since the prior study. There are confluent nodules in the right mid abdomen along the hepatic flexure of the colon. There is a new small nodule adjacent to the sigmoid colon on Image 102, which measures 1.4 x 0.9 cm. There is an ill-defined left pelvic soft tissue mass, which appears to have mildly increased in size when compared to the prior studies. This is to the left of the rectosigmoid colon. There are scattered diverticula of the sigmoid colon. Urinary bladder is mildly distended and appears unremarkable. No definite bone lesions are seen. There is new mild free fluid in the pelvis. There is a tiny amount of fluid around the liver. IMPRESSION: Multiple peritoneal, mesenteric, and omental nodules present, which have mildly increased in size and number compared to the prior CT of 12/05/2019 as discussed above. There also appears to a mild increase in size of a left pelvic irregular soft tissue mass. Maximum diameter of that mass is approximately 3.5 cm. There is new mild free fluid in the pelvis and a tiny amount of perihepatic fluid. MTDD
== END ==
LOC: M RAD 10:51
PROVIDERS: ATTEND Internal Medicine Medical Oncology
DX: C54.1 Malignant neoplasm of endometrium (principal); K63.89 Other specified diseases of intestine
CPT/HCPCS: 71260; 74177; Q9963; Q9967

== ENCOUNTER 2020-05-22 11:11 | Emergency (ER) | payer MEDICARE, OTHER ==
[~2020-05-22] VITALS: Ht 170.2 cm; Wt 74.2 kg
[~2020-05-22 11:11] MED LIST changes: -GASTROGRAFIN SOLUTION 30ML (Q9963) As Ordered ONE; -ISOVUE-370 76% 100ML VIAL As Ordered ONE; +ONDA8TAB10 PO; +SIME125C4 PO
[2020-05-22] MEDS ORDERED: CYCL1CAP2 PO (11:31)
[2020-05-22] MEDS ORDERED: ACETAMINOPHEN 500 MG TAB PO ONE (13:30)
[2020-05-22] MEDS ORDERED: lisinopriL 10 MG TAB PO ONE (13:30)
[2020-05-22 13:46] VITALS: BP 204/90
[2020-05-22] MEDS ORDERED: LISI10TA4 PO (14:41)
[2020-05-22 15:13] VITALS: BP 199/81
== END 2020-05-22 15:16 | disposition home or self-care (01) ==
LOC: M ED 11:11
DX: I10 Essential (primary) hypertension (principal); I73.9 Peripheral vascular disease, unspecified; Z79.899 Other long term (current) drug therapy; Z88.0 Allergy status to penicillin; Z88.1 Allergy status to other antibiotic agents; Z88.2 Allergy status to sulfonamides; Z88.8 Allergy status to other drugs, medicaments and biological substances; Z91.048 Other nonmedicinal substance allergy status

== ENCOUNTER 2020-05-30 22:35 | Inpatient (IN) | payer MEDICARE, OTHER ==
[~2020-05-30] VITALS: Ht 170.2 cm; Wt 70.9 kg
[~2020-05-30 22:35] MED LIST changes: +LISI10TA4 PO
[2020-05-30] MEDS ORDERED: LOSA100T50 PO (22:53)
[2020-05-30] MEDS ORDERED: LABETALOL 100MG/20ML VIAL IV STA (23:03)
[2020-05-30 23:16] LABS: BASO % 0.8 % (0.0-1.0); EOS # 0.1 10^3/uL (0.0-0.5); EOS % 2.7 % (0.0-3.0); HEMATOCRIT 36.9 % (36.0-47.0); HEMOGLOBIN 11.7 g/dl (12.0-15.5); LYMPH # 0.5 10^3/uL (1.5-5.0); LYMPH % 10.1 % (24.0-44.0); MEAN CORPUSCULAR HGB CONC 31.7 g/dl (32.0-36.5); MEAN CORPUSCULAR VOLUME 91.6 fl (80.0-96.0); MONO # 0.5 10^3/uL (0.0-0.8); MONO % 9.7 % (0.0-5.0); NEUTROPHILS # 3.7 10^3/uL (1.5-8.5); NEUTROPHILS % 76.3 % (36.0-66.0); PLATELET COUNT, AUTOMATED 246 10^3/uL (150-450); RED BLOOD COUNT 4.03 10^6/uL (4.00-5.40); WHITE BLOOD COUNT 4.9 10^3/uL (4.0-10.0)
--- NOTE | 2020-05-30 23:25 | REPVR ---
PROCEDURE INFORMATION: Exam: XR Chest, 1 View Exam date and time: 05/30/2020 11:18 PM Age: 69 years old Clinical indication: Chest pain; Type not specified TECHNIQUE: Imaging protocol: XR of the chest Views: 1 view. COMPARISON: CT Chest with contrast 04/20/2020 12:39 PM FINDINGS: Tubes, catheters and devices: Right chest infusion port terminates at the SVC. Lungs: No consolidation. Pleural space: Unremarkable. No pleural effusion. No pneumothorax. Heart/Mediastinum: Unremarkable. No cardiomegaly. Bones/joints: Osteopenia. IMPRESSION: No acute cardiopulmonary process. Electronically signed by: Humberto Marroquin On 05/30/2020 23:24:56 PM
--- NOTE | 2020-05-30 23:26 | REPVR ---
PROCEDURE INFORMATION: Exam: CT Head Without Contrast Exam date and time: 05/30/2020 11:12 PM Age: 69 years old Clinical indication: Pain; Headache; Additional info: HTN headache TECHNIQUE: Imaging protocol: Computed tomography of the head without contrast. Radiation optimization: All CT scans at this facility use at least one of these dose optimization techniques: automated exposure control; mA and/or kV adjustment per patient size (includes targeted exams where dose is matched to clinical indication); or iterative reconstruction. COMPARISON: No relevant prior studies available. FINDINGS: Brain: Mild age-related volume loss. No acute intracranial hemorrhage, midline shift or mass effect. Cerebral ventricles: No hydrocephalus. Bones/joints: Unremarkable. No acute fracture. Paranasal sinuses: Visualized sinuses are unremarkable. No fluid levels. Mastoid air cells: Visualized mastoid air cells are well aerated. Soft tissues: Unremarkable. IMPRESSION: No acute intracranial abnormality. Electronically signed by: Humberto Marroquin On 05/30/2020 23:26:19 PM
[2020-05-30 23:27] LABS: INR 0.91; PARTIAL THROMBOPLASTIN TIME 26.7 SECONDS (24.2-38.5); PROTHROMBIN TIME 12.4 SECONDS (12.5-14.3)
[2020-05-30] MEDS ORDERED: ACET-683 PO (23:42)
[2020-05-31] VITALS (10 sets, daily range): BP systolic 119–164; BP diastolic 63–100
[2020-05-31 00:10] LABS: ALBUMIN 3.9 GM/DL (3.2-5.2); ALT/SGPT 32 U/L (12-78); BILIRUBIN,DIRECT < 0.1 MG/DL (0.0-0.2); BILIRUBIN,TOTAL 0.4 MG/DL (0.2-1.0); BLOOD UREA NITROGEN 21 MG/DL (7-18); CALCIUM LEVEL 9.1 MG/DL (8.8-10.2); CARBON DIOXIDE LEVEL 28 MEQ/L (21-32); CHLORIDE LEVEL 108 MEQ/L (98-107); CK-MB VALUE MASS 1.5 NG/ML (<3.6); CPK CREATINE PHOSPHOKINASE 105 U/L (26-192); CREATININE FOR GFR 1.28 MG/DL (0.55-1.30); FREE T4 1.44 NG/DL (0.76-1.46); GLUCOSE, FASTING 95 MG/DL (70-100); LIPASE 108 U/L (73-393); MB/CK RELATIVE INDEX 1.43 (< OR =4); SODIUM LEVEL 141 MEQ/L (136-145); TOTAL PROTEIN 6.7 GM/DL (6.4-8.2); TROPONIN I < 0.02 NG/ML (< 0.10)
[2020-05-31] MEDS ORDERED: LABETALOL 100MG/20ML VIAL IV STA (00:14)
[2020-05-31] MEDS ORDERED: CAPTOpril 6.25 MG PER 1/2 TABLET PO STA (00:28)
[2020-05-31] MEDS ORDERED: hydrALAZINE 20MG/ML 1ML VIAL (J0360 PER 20MG) IV STA (00:28)
[2020-05-31] MEDS ORDERED: METOCLOPRAMIDE INJ 10MG/2ML VIAL (J2765 PER 1) IV ONE (01:00)
[2020-05-31] MEDS ORDERED: KETOROLAC 30 MG/ML 1ML VIAL IV ONE (01:00)
[2020-05-31] MEDS ORDERED: ACETAMINOPHEN *IV* 1,000 MG in IV 1 EA IV ONE ×2 (01:00→15:00)
--- NOTE | 2020-05-31 01:00 | IPNPDOC ---
Date Seen The patient was seen on 05/31/20. Progress Note ADDENDUM TO HISTORY AND PHYSICAL: CODE STATUS: CPR, TRIAL OF INTUBATION/MECHANICAL VENTILATION FOR TWO WEEKS ONLY, NO TRACHEOSTOMY HYPERTENSIVE URGENCY: -may be related to avastin. pt sees an oncologist in [place], as well as Dr. Damico . consider alternative therapy -r/o Renal Artery stenosis npo after midnight for renal us w doppler. avoid YE inh until negative us. -trial of labetalol but will need to hold if becomes bradycardic. vasodilators for now-hydralazine and nitropaste since patient c/o nausea -CT head negative for ICH -EKG-sinus 69 no acute ischemic changes -troponin <0.02 HEADACHE -due to hypertensive urgency. treat HTN as documented above -given reglan toradol acetaminophen. -CT head negative for ICH VS, I&O, 24H, Fishbone Vital Signs/I&O Vital Signs Date Time Temp Pulse Resp B/P (MAP) Pulse Ox O2 Delivery O2 Flow Rate FiO2 05/31/20 00:32 71 227/97 05/30/20 22:36 98.2 16 99 Room Air Laboratory Data 24H LABS Laboratory Tests 2 05/30/20 23:06: Immature Granulocyte % (Auto) 0.4, Neutrophils (%) (Auto) 76.3H, Lymphocytes (%) (Auto) 10.1L, Monocytes (%) (Auto) 9.7H, Eosinophils (%) (Auto) 2.7, Basophils (%) (Auto) 0.8, Neutrophils # (Auto) 3.7, Lymphocytes # (Auto) 0.5L, Monocytes # (Auto) 0.5, Eosinophils # (Auto) 0.1, Basophils # (Auto) 0.0, Nucleated Red Blood Cells % (auto) 0.0, Prothrombin Time 12.4, Prothromb Time International Ratio 0.91, Activated Partial Thromboplast Time 26.7, Anion Gap 5L, Glomerular Filtration Rate 44.0L, Calcium Level 9.1, Total Bilirubin 0.4, Direct Bilirubin < 0.1, Aspartate Amino Transf (AST/SGOT) 30, Alanine Aminotransferase (ALT/SGPT) 32, Alkaline Phosphatase 91, Total Creatine Kinase 105, Creatine Kinase MB 1.5, Creatine Kinase MB Relative Index 1.43, Troponin I < 0.02, Total Protein 6.7, Albumin 3.9, Albumin/Globulin Ratio 1.4, Lipase 108, Thyroid Stimulating Hormone (TSH) 2.090, Free Thyroxine 1.44 05/30/20 23:34: Coronavirus (COVID-19)(PCR) NEGATIVE CBC/BMP Laboratory Tests 05/30/20 23:06 KATE COKER MD May 31, 2020 01:00
[2020-05-31] MEDS: NITROGLYCERIN 2% OINT 1 GM *U/D* PKT TOP SCH ×6 (01:27→21:29)
[2020-05-31] MEDS: hydrALAZINE 20MG/ML 1ML VIAL (J0360 PER 20MG) IV SCH ×6 (02:22→21:29)
--- NOTE | 2020-05-31 03:38 | HPEPDOC ---
[facility] Medical History & Physical Date of Admission May 31, 2020 Date of Service: May 31, 2020 Primary Care Physician: Brayan Simms MD Attending Physician: KATE COKER MD History and Physical CHIEF COMPLAINT: Headache, elevated blood pressure HISTORY OF PRESENT ILLNESS: Patient is a 69-year-old female who presented to the hospital with elevated blood pressure and headache. Patient recently started Avastin for her endometrial cancer. Patient is followed by oncology for this. Patient says that she was found to have elevated tumor markers they're watching 3 different spots in her abdomen. She was on doxorubicin but this was no longer working. Patient states that since starting the Avastin in April, her blood pressures have been increasing. Patient was seen in the emergency department last week and was started on lisinopril. Patient saw her PCP doubled her dose of lisinopril earlier this past week. After this did not work, patient was then changed to losartan 50 mg. Patient says that her blood pressures have been quite elevated since then. Patient states that she took her blood pressure today as she was having a headache and her blood pressure was 200/90. Patient reported the emergency department. In the emergency department, patient received IV labetalol which did not lower her blood pressure adequately. Patient reports headache and some blurry vision but denies chest pain, neurological symptoms, or increased abdominal pain and nausea. Hospitalist was consulted for admission into the hospital for hypertensive urgency. PAST MEDICAL HISTORY: 1. Endometrial cancer and was recently started on Avastin on 04/30/2020. 2. Seizures in childhood. 3. History of gastric ulcers. PAST SURGICAL HISTORY: 1. Tonsillectomy. 2. Hysterectomy. 3. Shoulder surgery. 4. Tubal ligation SOCIAL HISTORY: Patient denies using tobacco products, alcohol, or illicit and IV drugs. 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 Patient has a half-brother with a brain tumor and a sister with leukemia. ALLERGIES: Please see below. REVIEW OF SYSTEMS: General: Patient denies fevers HEENT: Patient reports headaches and blurry vision as above. Cardiovascular: Patient denies chest pain Respiratory: Patient denies shortness of breath, cough GI: Patient denies reports of abdominal pain in her lower abdomen which is chronic secondary to her cancer. Patient reports that she was having some upper abdominal pain yesterday but denies having this pain currently. Patient denies nausea, vomiting, or constipation. Patient reports chronic diarrhea from [place] : Patient denies increased frequency or pain with urination Extremities: Patient denies swelling or pain in extremities Neurological: Patient denies numbness or tingling in legs Skin: Patient denies any new rashes or lesions. Hematologic: Patient denies any easy bruising. Lymphatic: Patient denies any lumps lumps or bumps in neck, axilla, or groin HOME MEDICATIONS: Please see below. PHYSICAL EXAMINATION: VITAL SIGNS: See below General: Alert and oriented female patient who is laying on the stretcher when I walked in. Patient did not appear to be in any acute distress. HEENT: Normocephalic, atraumatic, moist mucous membranes. Neck: No lymphadenopathy or thyromegaly Cardiac: Regular rate and rhythm, no murmurs, normal S1, normal S2 Pulm: Clear to auscultation bilaterally. No wheezes, rhonchi, rales Abd: Nondistended, nontender to palpation, normal bowel sounds Ext: No edema bilateral lower extremities Skin: Patient does not have any rashes or other lesions on the examined skin of the arms, abdomen, head, neck, lower legs. LABORATORY DATA: See below. IMAGING: Patient had a CT of the head performed without contrast on 05/30/2020 which was reported to show no acute intracranial abnormality. A chest x-ray performed on 05/30/2020 was reported to show no acute car diopulmonary process MICROBIOLOGY: Please see below. ASSESSMENT: Patient is a 69-year-old female presents to the emergency department with headache and elevated blood pressure who was diagnosed hypertensive urgency thought to be secondary from Avastin use. PLAN: 1. Hypertensive urgency. Patient was given Nitropaste and IV labetalol and hydralazine to slowly bring down the patient's blood pressure. If the patient's blood pressure drops too quickly, we will stop his medications and continue to monitor the pressure. Patient's blood pressure may be secondary to Avastin use as this is a common side effect of this medication however, renal artery stenosis cannot be ruled out. A renal artery Doppler will be performed in the morning to rule this out as the patient was started on an Saad/ARB and her blood pressure still remained elevated. 2. Endometrial adenocarcinoma. Treatment per oncology. Oncology may need to be counseled inpatient for further guidance on treatment however, patient may be able to follow up outpatient for either her management of her blood pressure or change in treatment for her endometrial cancer. 3. Chemotherapy/immunotherapy induced nausea. We will continue the patient's home medications of these work well for her. Patient does not report nausea at the time of admission. 4. DVT prophylaxis: Heparin 5. CODE STATUS: Patient would like CPR and would like a trial of intubation for no more than 2 weeks. Vital Signs Vital Signs Date Time Temp Pulse Resp B/P (MAP) Pulse Ox O2 Delivery O2 Flow Rate FiO2 05/31/20 02:30 74 16 151/69 (96) 98 Room Air 05/30/20 22:36 98.2 Laboratory Data Labs 24H Laboratory Tests 2 05/30/20 23:06: Immature Granulocyte % (Auto) 0.4, Neutrophils (%) (Auto) 76.3H, Lymphocytes (%) (Auto) 10.1L, Monocytes (%) (Auto) 9.7H, Eosinophils (%) (Auto) 2.7, Basophils (%) (Auto) 0.8, Neutrophils # (Auto) 3.7, Lymphocytes # (Auto) 0.5L, Monocytes # (Auto) 0.5, Eosinophils # (Auto) 0.1, Basophils # (Auto) 0.0, Nucleated Red Blood Cells % (auto) 0.0, Prothrombin Time 12.4, Prothromb Time International Ratio 0.91, Activated Partial Thromboplast Time 26.7, Anion Gap 5L, Glomerular Filtration Rate 44.0L, Calcium Level 9.1, Total Bilirubin 0.4, Direct Bilirubin < 0.1, Aspartate Amino Transf (AST/SGOT) 30, Alanine Aminotransferase (ALT/SGPT) 32, Alkaline Phosphatase 91, Total Creatine Kinase 105, Creatine Kinase MB 1.5, Creatine Kinase MB Relative Index 1.43, Troponin I < 0.02, Total Protein 6.7, Albumin 3.9, Albumin/Globulin Ratio 1.4, Lipase 108, Thyroid Stimulating Hormone (TSH) 2.090, Free Thyroxine 1.44 05/30/20 23:34: Coronavirus (COVID-19)(PCR) NEGATIVE CBC/BMP Laboratory Tests 05/30/20 23:06 Home Medications Scheduled Cyclophosphamide (Cyclophosphamide) 50 Mg Capsule, 50 MG PO DAILY Gabapentin (Gabapentin) 300 Mg Capsule, 900 MG PO TID Losartan Potassium (Losartan Potassium) 100 Mg Tablet, 100 MG PO QHS Phenylephrine HCl/[place] Butter (Preparation H Suppository) 1 Each Supp.rect, 1 SUP IN PRN Simethicone (Gas-X) 125 Mg Capsule, 2 CAP PO TID Scheduled PRN Acetaminophen (Acetaminophen) 500 Mg Tablet, 1,000 MG PO Q6H PRN for PAIN Ondansetron HCl (Ondansetron HCl) 8 Mg Tablet, 8 MG PO TIDP PRN for NAUSEA Prochlorperazine Maleate (Prochlorperazine Maleate) 10 Mg Tablet, 10 MG PO Q6HP PRN for NAUSEA Allergies Coded Allergies: Penicillins (Verified Allergy, Intermediate, HIVES, 10/10/18) Sulfa (Sulfonamide Antibiotics) (Verified Allergy, Intermediate, HIVES, 10/10/18) TAPE (Unverified Allergy, Intermediate, RASH, 01/12/16) THE PLASTIC KIND carboplatin (Verified Allergy, Intermediate, hives, 08/02/19) levofloxacin (Verified Allergy, Intermediate, skin discoloration and skin peeling, 04/30/20) erythromycin base (Verified Adverse Reaction, Intermediate, nausea/vomitting, 04/30/20) A-FIB/CHADSVASC A-FIB History Current/History of A-Fib/PAF?: No GME ATTESTATION GME ATTESTATION My faculty preceptor for this patient encounter was physically present during the encounter and was fully available. All aspects of the patient interview, examination, medical decision making process, and medical care plan development were reviewed and approved by the faculty preceptor. The faculty preceptor is aware and concurs with the plan as stated in the body of this note and will attest to such by his/her cosignature. ATTENDING NOTE I have independently interviewed and examined this patient at the bedside, and agree with the physical findings, assessment and management plan as documented above . By my resident physician. The patient's questions and concerns have been satisfactorily addressed. Patient was encouraged to call our office for any further questions or concerns. STEFFANIE DE LOS SANTOS DO May 31, 2020 03:38 KATE COKER MD May 31, 2020 06:00
[2020-05-31] MEDS: LABETALOL 100MG/20ML VIAL IV SCH ×3 (06:00→17:45)
[2020-05-31] MEDS: HEPARIN SOD (PORCINE) 5000UNITS/ML 1ML VIAL/SYRINGE SQ SCH ×2 (09:59→21:30)
[2020-05-31] MEDS: ACETAMINOPHEN TAB 650MG DOSE (2X325MG) PO PRN (12:30)
[2020-05-31] MEDS ORDERED: FIORICET TAB PO PRN (14:00)
[2020-05-31] MEDS: ONDANSETRON 4MG/2ML VIAL IV PRN (14:30)
[2020-05-31] MEDS: PROCHLORPERAZINE 10MG/2ML VIAL (J0780 PER 1) IV PRN (15:40)
[2020-05-31] MEDS ORDERED: ACETAMINOPHEN *IV* 650 MG in IV 1 EA IV ONE (20:30)
--- NOTE | 2020-05-31 21:05 | IPNPDOC ---
Subjective Date Seen The patient was seen on 05/31/20. Subjective Chief Complaint/HPI Mrs. Meade is a 69 year old female here with hypertensive urgency 2/2 to Avaastin for her endometrial cancer. Still pending results from US renal arteries. Otherwise, this afternoon, she had a headache when going from sitting up to lying down. Did not improve with PO acetaminophen or Fioricet. Says that IV acetaminophen had helped her headache in the ED. Otherwise denies fever/chills, chest pain, dyspnea, abdominal pain, or dysuria. Objective Physical Examination General Exam: Positive: Alert, Cooperative, Mild Distress Eye Exam: Positive: EOMI; Negative: Sclera icteric ENT Exam: Positive: Atraumatic Neck Exam: Negative: thyromegaly Chest Exam: Positive: Clear to auscultation Heart Exam: Positive: Rate Normal, Regular Rhythm Abdomen Exam: Positive: Normal bowel sounds, Soft; Negative: Tenderness Extremity Exam: Negative: Edema Skin Exam: Positive: Nl turgor and temperature Neuro Exam: Positive: Normal Speech Psych Exam: Positive: Mental status NL, Mood NL Assessment /Plan Assessment Mrs. Meade is a 69 year old female here with hypertensive urgency 2/2 to Avaastin for her endometrial cancer. PCP had her on ARB, but there was no improvement. There was concern that she has bilateral renal artery stenosis thus ARB is on hold and US renal was obtained. Pending US renal results Plan/VTE VTE Prophylaxis Ordered?: Yes Plan 1. Hypertensive urgency -BP responds to IV labetalol, IV hydralazine, and Nitropaste -While waiting on Renal US, will start on amlodipine 2. Endometrial adenocarcinoma -Outpatient follow up with oncology 3. Insomnia -Ramelteon 4. DVT ppx -Heparin VS, I&O, 24H, Fishbone Vital Signs/I&O Vital Signs Date Time Temp Pulse Resp B/P (MAP) Pulse Ox O2 Delivery O2 Flow Rate FiO2 05/31/20 18:09 160/90 05/31/20 17:45 105 05/31/20 16:00 20 05/31/20 15:54 96.9 95 Room Air I&O- Last 24 Hours up to 6 AM 05/31/20 06:00 Intake Total 100 ml Balance 100 ml Laboratory Data 24H LABS Laboratory Tests 2 05/30/20 23:06: Immature Granulocyte % (Auto) 0.4, Neutrophils (%) (Auto) 76.3H, Lymphocytes (%) (Auto) 10.1L, Monocytes (%) (Auto) 9.7H, Eosinophils (%) (Auto) 2.7, Basophils (%) (Auto) 0.8, Neutrophils # (Auto) 3.7, Lymphocytes # (Auto) 0.5L, Monocytes # (Auto) 0.5, Eosinophils # (Auto) 0.1, Basophils # (Auto) 0.0, Nucleated Red Blood Cells % (auto) 0.0, Prothrombin Time 12.4, Prothromb Time International Ratio 0.91, Activated Partial Thromboplast Time 26.7, Anion Gap 5L, Glomerular Filtration Rate 44.0L, Calcium Level 9.1, Total Bilirubin 0.4, Direct Bilirubin < 0.1, Aspartate Amino Transf (AST/SGOT) 30, Alanine Aminotransferase (ALT/SGPT) 32, Alkaline Phosphatase 91, Total Creatine Kinase 105, Creatine Kinase MB 1.5, Creatine Kinase MB Relative Index 1.43, Troponin I < 0.02, Total Protein 6.7, Albumin 3.9, Albumin/Globulin Ratio 1.4, Lipase 108, Thyroid Stimulating Hormone (TSH) 2.090, Free Thyroxine 1.44 05/30/20 23:34: Coronavirus (COVID-19)(PCR) NEGATIVE CBC/BMP Laboratory Tests 05/30/20 23:06 FELI FALCON DO May 31, 2020 21:05
[2020-06-01] VITALS (7 sets, daily range): BP systolic 137–180; BP diastolic 73–90
[2020-06-01] MEDS: LABETALOL 100MG/20ML VIAL IV SCH ×2 (00:12→06:43)
[2020-06-01] MEDS: ONDANSETRON 4MG/2ML VIAL IV PRN (00:13)
[2020-06-01] MEDS: hydrALAZINE 20MG/ML 1ML VIAL (J0360 PER 20MG) IV SCH ×3 (02:00→10:10)
[2020-06-01] MEDS ORDERED: PROMETHAZINE INJ 25 MG/ML VIAL (J2550) IV ONE (02:45)
[2020-06-01] MEDS ORDERED: LABETALOL 100MG/20ML VIAL IV ONE (02:45)
[2020-06-01] MEDS ORDERED: PROMETHAZINE INJ 25 MG/ML VIAL (J2550) IV PRN (02:45)
--- NOTE | 2020-06-01 02:48 | IPNPDOC ---
Date Seen The patient was seen on 06/01/20. Progress Note RN called re: pt's c/o headache and nausea. pt requests iv acetaminophen. no improvement w compazine and zofran with persistent nausea plan: -may be related to nitrogylcerin . dc nitro -continue iv labetalol, hydralazine, norvasc -dc compazine, zofran -prn phenergan. -iv labetalol and iv hydralazine until nausea subsides. VS, I&O, 24H, Fishbone Vital Signs/I&O Vital Signs Date Time Temp Pulse Resp B/P (MAP) Pulse Ox O2 Delivery O2 Flow Rate FiO2 06/01/20 00:12 82 162/82 06/01/20 00:00 97.4 18 96 Room Air I&O- Last 24 Hours up to 6 AM 06/01/20 06:00 Intake Total 0 ml Output Total 500 ml Balance -500 ml KATE COKER MD Jun 01, 2020 02:48
[2020-06-01] MEDS ORDERED: RIZATRIPTAN BENZOATE 10 MG TAB PO ONE (03:00)
[2020-06-01] MEDS ORDERED: CYCLOBENZAPRINE 10MG TABLET PO ONE (04:30)
[2020-06-01] MEDS ORDERED: HYDROMORPHONE HCL 0.5 MG/ 0.5 ML SYRINGE (J1170 PER 1) IV ONE (05:45)
[2020-06-01 06:27] LABS: HEMATOCRIT 35.9 % (36.0-47.0); HEMOGLOBIN 11.8 g/dl (12.0-15.5); MEAN CORPUSCULAR HEMOGLOBIN 29.7 pg (27.0-33.0); MEAN CORPUSCULAR HGB CONC 32.9 g/dl (32.0-36.5); MEAN CORPUSCULAR VOLUME 90.4 fl (80.0-96.0); PLATELET COUNT, AUTOMATED 276 10^3/uL (150-450); RED BLOOD COUNT 3.97 10^6/uL (4.00-5.40); WHITE BLOOD COUNT 5.9 10^3/uL (4.0-10.0)
[2020-06-01 06:54] LABS: CALCIUM LEVEL 9.6 MG/DL (8.8-10.2); CREATININE FOR GFR 1.52 MG/DL (0.55-1.30); GLOMERULAR FILTRATION RATE 36.1 (>45)
--- NOTE | 2020-06-01 07:37 | REP ---
INDICATION: HYPERTENSIVE URGENCY COMPARISON: None TECHNIQUE: Real time neil scale ultrasound examination using curved array transducer followed by color Doppler evaluation of the renal vasculature. FINDINGS: The bilateral kidneys demonstrate increased central sinus fat consistent with age-related changes. No hydronephrosis, nephrolithiasis, or cystic lesion appreciated. Right kidney measures 8.6 x 4.5 x 3.3 cm. Left kidney measures 9.1 x 5.2 x 5.7 cm and includes 11 mm hyperechoic midpole structure suggesting benign angiomyolipoma. Bladder is under distended. Color Doppler evaluation demonstrates normal renal arterial wave patterns and velocities.. Peak aortic velocity: 104 centimeters/second RIGHT KIDNEY Renal arterial velocity: 114 centimeters/second Renal-aortic ratio: 1.1 Intrarenal resistive indices: 0.66-0.69 Intrarenal acceleration times: 0.034-0.40 LEFT KIDNEY Renal arterial velocity: 108 centimeters/second Renal-aortic ratio: 1.04 Intrarenal resistive indices: 0.70-0.74 Intrarenal acceleration times: 0.022-0.034 IMPRESSION: 1. 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 2. Doppler interrogation without sonographic evidence for renal arterial stenosis. <Electronically signed by Jules Grande > 06/01/20 [id number]
[2020-06-01] MEDS ORDERED: LOSARTAN 50MG TABLET PO SCH (09:00)
[2020-06-01] MEDS: ACETAMINOPHEN TAB 650MG DOSE (2X325MG) PO PRN ×2 (09:48→21:22)
[2020-06-01] MEDS: amLODIPine 5 MG TAB PO SCH (09:53)
[2020-06-01] MEDS: PROCHLORPERAZINE 10MG/2ML VIAL (J0780 PER 1) IV PRN (09:57)
[2020-06-01] MEDS: HEPARIN SOD (PORCINE) 5000UNITS/ML 1ML VIAL/SYRINGE SQ SCH ×2 (09:59→21:22)
--- NOTE | 2020-06-01 10:05 | ECGEPIP ---
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
--- NOTE | 2020-06-01 11:58 | IPNPDOC ---
Text Note Date of Service The patient was seen on 06/01/20. NOTE SUBJECTIVE: Patient was seen at 8am today, but had recently been given hydromorphone for her headache. She was vomiting when I entered the room, and states she had vomited twice this morning and three times the previous evening. She complains of a 10/10 HARRIS. She was lethargic at time of interview, and fell asleep while I was preforming a physical exam. OBJECTIVE: VITALS: See below GENERAL: Patient is lethargic, and does not respond to most questions. She is in mild distress, and curls into the position during interview. CV: tachycardia with rhythm regular. S1 an S2 sounds are noted. No murmurs, gallops or rubs are appreciated. Radial pulses are equal. Capillary refill is <3s. LUNGS: Clear to auscultation bilaterally. No wheezing, rales or rhonchi are note d. ABD: Soft, nontender to palpation, nondistended. +BS, no masses NEURO: Could not be assessed due to patient somnolence. EXTREMITIES: There is no edema in the legs. Moves all extremities well PSYCH: normal mood/affect, AAOx3 IMAGING: RENAL US: FINDINGS: The bilateral kidneys demonstrate increased central sinus fat consistent with age-related changes. No hydronephrosis, nephrolithiasis, or cystic lesion appreciated. Right kidney measures 8.6 x 4.5 x 3.3 cm. Left kidney measures 9.1 x 5.2 x 5.7 cm and includes 11 mm hyperechoic midpole structure suggesting benign angiomyolipoma. Bladder is under distended. Color Doppler evaluation demonstrates normal renal arterial wave patterns and velocities.. Peak aortic velocity: 104 centimeters/second RIGHT KIDNEY Renal arterial velocity: 114 centimeters/second Renal-aortic ratio: 1.1 Intrarenal resistive indices: 0.66-0.69 Intrarenal acceleration times: 0.034-0.40 LEFT KIDNEY Renal arterial velocity: 108 centimeters/second Renal-aortic ratio: 1.04 Intrarenal resistive indices: 0.70-0.74 Intrarenal acceleration times: 0.022-0.034 IMPRESSION: 1. 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 2. Doppler interrogation without sonographic evidence for renal arterial stenosis. ASSESSMENT/PLAN: The patient is a 69yo female who presented to the ED with HARRIS and blurry vision found to have Hypertensive Urgency most likely 2/2 current ongoing chemotherapy vs idiopathic vs uncontrolled HTN. Renal US negative for renal artery stenosis. 1. Hypertensive Urgency: ddx includes current ongoing chemotherapy vs uncontrolled HTN vs idiopathic -Blood pressure has improved from admission 232/112 to 150/90 this afternoon -Renal artery US does not show any evidence of renal artery stenosis. -Transition the patient from IV antihypertensives to oral antihypertensives to prepare for outpatient followup -Started Losartan 50mg QD -Continue amlodipine 5mg PO -Discontinue IV labetalol -Discontinue IV Hydralazine 2. Headache: likely 2/2 hypertensive urgency -Continue Tylenol 650mg PRN PO -Continue Fioricet 1ea Q6HR PRN PO 3. Nausea and Vomiting: likely 2/2 hypertensive urgency -Blood pressure better controlled today -Zofran 4mg ODT PRN, Qtc is 425, close to upper limit of normal 4. Insomnia -Continue Ramelteon 8mg Q10HR PRN 5. Endometrial Cancer: currently undergoing chemotherapy on Avastin -Followup outpatient 6. DVT Prophylaxis -Heparin 5000 units, Q12HR SC Dispo: Pending reduction of BP. Estimated discharge in 48hr. GME ATTESTATION My faculty preceptor for this patient encounter was physically present during the encounter and was fully available. All aspects of the patient interview, examination, medical decision making process, and medical care plan development were reviewed and approved by the faculty preceptor. The faculty preceptor is aware and concurs with the plan as stated in the body of this note and will attest to such by his/her cosignature. VS,Fishbone, I+O VS, Fishbone, I+O Laboratory Tests 06/01/20 05:57 Vital Signs Date Time Temp Pulse Resp B/P (MAP) Pulse Ox O2 Delivery O2 Flow Rate FiO2 06/01/20 10:10 190/100 06/01/20 08:00 98.5 89 17 96 Room Air I&O- Last 24 Hours up to 6 AM 06/01/20 06:00 Intake Total 0 ml Output Total 500 ml Balance -500 ml GME ATTESTATION GME ATTESTATION My faculty preceptor for this patient encounter was physically present during the encounter and was fully available. All aspects of the patient interview, examination, medical decision making process, and medical care plan development were reviewed and approved by the faculty preceptor. The faculty preceptor is aware and concurs with the plan as stated in the body of this note and will a ttest to such by his/her cosignature. ATTENDING NOTE I, Bacilio Nguyen, have personally performed the physical exam and medical decision making and discussed the management with the medical student / resident. I reviewed the medical student's note and hereby verify the history, physical exam, and medical decision making documented the medical student, the documented findings, and the plan of care. MICHAEL PRO Jun 01, 2020 11:57 ALVINA CHILD MD Jun 01, 2020 15:22 BACILIO NGUYEN DO Jun 01, 2020 19:21
[2020-06-01] MEDS ORDERED: ONDANSETRON 4 MG ORAL DISINTEGRATING TAB SL PRN (15:00)
[2020-06-01] MEDS: RAMELTEON 8 MG TAB (ROZEREM) PO PRN (21:22)
[2020-06-02] VITALS (7 sets, daily range): BP systolic 128–188; BP diastolic 74–90
[2020-06-02 06:14] LABS: HEMATOCRIT 32.8 % (36.0-47.0); HEMOGLOBIN 10.1 g/dl (12.0-15.5); MEAN CORPUSCULAR HEMOGLOBIN 28.8 pg (27.0-33.0); MEAN CORPUSCULAR HGB CONC 30.8 g/dl (32.0-36.5); MEAN CORPUSCULAR VOLUME 93.4 fl (80.0-96.0); PLATELET COUNT, AUTOMATED 261 10^3/uL (150-450); RED BLOOD COUNT 3.51 10^6/uL (4.00-5.40); WHITE BLOOD COUNT 4.5 10^3/uL (4.0-10.0)
[2020-06-02 06:46] LABS: CALCIUM LEVEL 8.8 MG/DL (8.8-10.2); CREATININE FOR GFR 1.57 MG/DL (0.55-1.30); GLOMERULAR FILTRATION RATE 34.8 (>45); POTASSIUM SERUM 3.8 MEQ/L (3.5-5.1)
[2020-06-02] MEDS: **hydrALAZINE HCL** 25 MG TAB PO SCH ×2 (07:42→16:01)
[2020-06-02] MEDS ORDERED: NS 1,000 ML IV SCH (08:00)
[2020-06-02] MEDS: HEPARIN SOD (PORCINE) 5000UNITS/ML 1ML VIAL/SYRINGE SQ SCH ×2 (08:35→20:44)
[2020-06-02] MEDS: amLODIPine 5 MG TAB PO SCH (08:38)
[2020-06-02] MEDS ORDERED: LOSARTAN 50MG TABLET PO SCH (09:00)
[2020-06-02] MEDS ORDERED: DOCUSATE SODIUM 100 MG CAP PO ONE (11:00)
[2020-06-02] MEDS: ACETAMINOPHEN TAB 650MG DOSE (2X325MG) PO PRN ×2 (16:02→22:59)
--- NOTE | 2020-06-02 16:52 | IPNPDOC ---
Date Seen The patient was seen on 06/02/20. Progress Note SUBJECTIVE: Cr bumped today, started on IVFs at 85 cc/hr until 4:45 in afternoon then stopped as BP creeping up again. Will watch overnight and f/u labs in AM. She denies headache, n/v/d, fevers or chills. OBJECTIVE: VITALS: See below GENERAL: AAOx3, in NAD resting in bed, following all commands. CV: S1 an S2 sounds are noted. No murmurs, gallops or rubs are appreciated LUNGS: Clear to auscultation bilaterally. No wheezing, rales or rhonchi are noted. ABD: Soft, nontender to palpation, nondistended. +BS, no masses NEURO: Could not be assessed due to patient somnolence. EXTREMITIES: There is no edema in the legs. Moves all extremities well PSYCH: normal mood/affect, AAOx3 IMAGING: RENAL US: 1. 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 2. Doppler interrogation without sonographic evidence for renal arterial stenosis. ASSESSMENT: The patient is a 69yo female who presented to the ED with HARRIS and blurry vision found to have Hypertensive Urgency most likely 2/2 current ongoing chemotherapy vs idiopathic vs uncontrolled HTN. PLAN: #Hypertensive Urgency: ddx includes current ongoing chemotherapy vs uncontrolled HTN vs idiopathic. -Blood pressure had remained improved for most of day, towards evening BP closer to 180 systolic. -Renal artery US: neg for stenosis -Stopped losartan 2/2 to Cr incr -Continue amlodipine 5mg PO daily with extra dose this evening -Hydralazine PRN #Acute kidney injury likely 2/2 to hypertensive urgency, medications -D/c losartan on 06/01/20 -Avoid nephrotoxic meds -Hydrated with 85 cc fluids until 4:45 Pm today then d/c fluids -F/u AM labs. #Insomnia -Ramelteon 8mg Q10HR PRN #Endometrial Cancer -currently undergoing chemotherapy on Avastin -Followup outpatient # DVT Prophylaxis -Heparin 5000 units, Q12HR SC Resolved issues: Headache likely 2/2 hypertensive urgency Nausea and Vomiting: likely 2/2 hypertensive urgency DISPOSITION: Made inpatient today from observation status. If Cr improved and BP remains stable, hoping for discharge home tomorrow VS, I&O, 24H, Fishbone Vital Signs/I&O Vital Signs Date Time Temp Pulse Resp B/P (MAP) Pulse Ox O2 Delivery O2 Flow Rate FiO2 06/02/20 16:01 182/77 06/02/20 12:00 98.3 85 18 96 Room Air I&O- Last 24 Hours up to 6 AM 06/02/20 06:00 Intake Total 300 ml Output Total 600 ml Balance -300 ml Laboratory Data 24H LABS Laboratory Tests 2 06/02/20 05:40: Nucleated Red Blood Cells % (auto) 0.0, Anion Gap 4L, Glomerular Filtration Rate 34.8L, Calcium Level 8.8 CBC/BMP Laboratory Tests 06/02/20 05:40 Current Medications Current Medications Medications (Trade) Dose Ordered Sig/Braxton Route PRN Reason Start Time Stop Time Status Last Admin Dose Admin Acetaminophen (Tylenol Tab) 650 mg Q6HP PRN PO PAIN / FEVER 05/31/20 11:30 06/02/20 16:02 Acetaminophen/ Butalbital/ Caffeine (Fioricet) 1 ea Q6HP PRN PO HEADACHE 05/31/20 14:00 05/31/20 14:19 Amlodipine Besylate (Norvasc) 5 mg DAILY PO 06/01/20 09:00 06/02/20 08:38 Captopril (CAPOten) 6.25 mg STAT STAT PO 05/31/20 00:28 05/31/20 00:57 DC Heparin Sodium (Porcine) (Heparin) 5,000 units Q12H SQ 05/31/20 09:00 06/02/20 08:35 Home Med (Med Rec Complete!) ASDIRECTED XX 05/30/20 23:45 05/30/20 23:47 DC Hydralazine HCl (Apresoline) 10 mg Q4H IV 05/31/20 02:00 06/01/20 11:30 DC 06/01/20 10:10 Hydralazine HCl (Apresoline) 10 mg STAT STAT IV 05/31/20 00:28 05/31/20 00:57 DC Hydralazine HCl (Apresoline) 25 mg Q8H PO 06/02/20 08:00 06/02/20 16:01 Labetalol HCl (Normodyne, Trandate) 10 mg Q6H IV 05/31/20 06:00 06/01/20 11:30 DC 06/01/20 06:43 Labetalol HCl (Normodyne, Trandate) 10 mg STAT STAT IV 05/30/20 23:03 05/30/20 23:04 DC 05/30/20 23:26 Labetalol HCl (Normodyne, Trandate) 20 mg STAT STAT IV 05/31/20 00:14 05/31/20 00:15 DC 05/31/20 00:32 Losartan Potassium (Cozaar) 50 mg DAILY PO 06/02/20 09:00 06/02/20 06:55 DC Losartan Potassium (Cozaar) 50 mg Q12H PO 06/01/20 09:00 06/01/20 14:48 DC 06/01/20 12:05 Nitroglycerin (Nitrobid 2%) APPLY 1 INCH TO ACW:H... Q4H TOP 05/31/20 02:00 06/01/20 02:46 DC 05/31/20 21:29 Ondansetron HCl (ZOFRAN INJection) 4 mg Q6HP PRN IV NAUSEA OR VOMITING 05/31/20 02:45 06/01/20 02:46 DC 06/01/20 00:13 Ondansetron HCl (Zofran Odt) 4 mg Q6HP PRN SL NAUSEA OR VOMITING 06/01/20 15:00 Prochlorperazine (Compazine) 10 mg Q6HP PRN IV VOMITING 05/31/20 02:45 06/01/20 14:49 DC 06/01/20 09:57 Promethazine HCl (PHENERGAN INJection) 25 mg Q4HP PRN IV NAUSEA 06/01/20 02:45 06/01/20 02:46 DC Ramelteon (Rozerem) 8 mg QHS PRN PO INSOMNIA 05/31/20 20:15 06/01/20 21:22 Sodium Chloride 1,000 ml @ 85 mls/hr [id number] IV 06/02/20 08:00 06/02/20 08:35 Allergies Coded Allergies: Penicillins (Verified Allergy, Intermediate, HIVES, 10/10/18) Sulfa (Sulfonamide Antibiotics) (Verified Allergy, Intermediate, HIVES, 10/10/18) TAPE (Unverified Allergy, Intermediate, RASH, 01/12/16) THE PLASTIC KIND carboplatin (Verified Allergy, Intermediate, hives, 08/02/19) levofloxacin (Verified Allergy, Intermediate, skin discoloration and skin peeling, 04/30/20) erythromycin base (Verified Adverse Reaction, Intermediate, nausea/vomitting, 04/30/20) Janey Martin MD Jun 02, 2020 16:52
[2020-06-02] MEDS ORDERED: amLODIPine 5 MG TAB PO ONE (17:00)
[2020-06-02] MEDS: RAMELTEON 8 MG TAB (ROZEREM) PO PRN (22:59)
[2020-06-02] MEDS: SIMETHICONE 80 MG CHEW TAB PO PRN (23:10)
[2020-06-03] VITALS: BP 160/78
[2020-06-03] MEDS: **hydrALAZINE HCL** 25 MG TAB PO SCH ×2 (00:43→08:04)
[2020-06-03 04:00] VITALS: BP 166/96
[2020-06-03 06:08] LABS: HEMATOCRIT 34.7 % (36.0-47.0); HEMOGLOBIN 10.9 g/dl (12.0-15.5); MEAN CORPUSCULAR HEMOGLOBIN 29.1 pg (27.0-33.0); MEAN CORPUSCULAR HGB CONC 31.4 g/dl (32.0-36.5); MEAN CORPUSCULAR VOLUME 92.8 fl (80.0-96.0); PLATELET COUNT, AUTOMATED 240 10^3/uL (150-450); RED BLOOD COUNT 3.74 10^6/uL (4.00-5.40)
[2020-06-03 06:38] LABS: CALCIUM LEVEL 8.8 MG/DL (8.8-10.2); CREATININE FOR GFR 1.14 MG/DL (0.55-1.30); GLOMERULAR FILTRATION RATE 50.3 (>45); POTASSIUM SERUM 3.8 MEQ/L (3.5-5.1)
[2020-06-03] MEDS: ACETAMINOPHEN TAB 650MG DOSE (2X325MG) PO PRN (07:30)
[2020-06-03 08:00] VITALS: BP 145/88
[2020-06-03 08:04] VITALS: BP 145/88
[2020-06-03] MEDS: amLODIPine 5 MG TAB PO SCH (08:05)
[2020-06-03] MEDS: HEPARIN SOD (PORCINE) 5000UNITS/ML 1ML VIAL/SYRINGE SQ SCH (08:05)
[2020-06-03] MEDS: SIMETHICONE 80 MG CHEW TAB PO PRN (08:05)
[2020-06-03] MEDS ORDERED: AMLO1TAB24 PO (08:23)
--- NOTE | 2020-06-03 12:55 | DS.PDOC ---
Discharge Summary General Date of Admission Jun 02, 2020 at 10:56 Date of Discharge 06/03/20 Attending Physician: Janey Martin MD Discharge Summary HISTORY OF PRESENT ILLNESS: Patient is a 69-year-old female who presented to the hospital with elevated blood pressure and headache. Patient recently started Avastin for her endometrial cancer. Patient is followed by oncology for this. Patient says that she was found to have elevated tumor markers they're watching 3 different spots in her abdomen. She was on doxorubicin but this was no longer working. Patient states that since starting the Avastin in April, her blood pressures have been increasing. Patient was seen in the emergency department last week and was started on lisinopril. Patient saw her PCP doubled her dose of lisinopril earlier this past week. After this did not work, patient was then changed to losartan 50 mg. Patient says that her blood pressures have been quite elevated since then. Patient states that she took her blood pressure today as she was having a headache and her blood pressure was 200/90. Patient reported the emergency department. In the emergency department, patient received IV labetalol which did not lower her blood pressure adequately. Patient reports headache and some blurry vision but denies chest pain, neurological symptoms, or increased abdominal pain and nausea. Hospitalist was consulted for admission into the hospital for hypertensive urgency. HOSPITAL COURSE: Patient's blood pressure was treated with IV labetalol this admission. She had headache, nausea which was later controlled with BP improving. Her creatinine increased after continuing losartan. This was later stopped and she was initially started on amlodipine daily, later BID. BP improved slowly. Cr normalized after stopping losartan and hydrating overnight with IVFs. On 06/03, Cr was wnl and patient's BP was improved. She was discharged home on amlodipine BID to follow up with her primary physician. At discharge she denied chest pain, shortness of breath, lightheadedness, headache, nausea, blurry vision. PAST MEDICAL HISTORY: 1. Endometrial cancer and was recently started on Avastin on 04/30/2020. 2. Seizures in childhood. 3. History of gastric ulcers. PAST SURGICAL HISTORY: 1. Tonsillectomy. 2. Hysterectomy. 3. Shoulder surgery. 4. Tubal ligation SOCIAL HISTORY: Patient denies using tobacco products, alcohol, or illicit and IV drugs. 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 Patient has a half-brother with a brain tumor and a sister with leukemia. ALLERGIES: Please see below. DISCHARGE MEDICATIONS: Please see below. PHYSICAL EXAM: VITALS: See below GENERAL: AAOx3, in NAD resting in bed, following all commands. CV: S1 an S2 sounds are noted. No murmurs, gallops or rubs are appreciated LUNGS: Clear to auscultation bilaterally. No wheezing, rales or rhonchi are noted. ABD: Soft, nontender to palpation, nondistended. +BS, no masses NEURO: Could not be assessed due to patient somnolence. EXTREMITIES: There is no edema in the legs. Moves all extremities well PSYCH: normal mood/affect, AAOx3 IMAGING: RENAL US: 1. 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 2. Doppler interrogation without sonographic evidence for renal arterial stenosis. ASSESSMENT: The patient is a 69yo female who presented to the ED with HARRIS and blurry vision found to have Hypertensive Urgency most likely 2/2 current ongoing chemotherapy vs idiopathic vs uncontrolled HTN. PLAN: #Hypertensive Urgency: ddx includes current ongoing chemotherapy vs uncontrolled HTN vs idiopathic. - resolved - BP 140-150 systolic -Renal artery US: neg for stenosis -Stopped losartan 2/2 to Cr incr -Continue amlodipine 5mg PO BID at discharge. Can discuss with PCP whether or not to switch back to losartan. #Acute kidney injury likely 2/2 to hypertensive urgency, medications- resolved -D/c losartan on 06/01/20 -Avoid nephrotoxic meds -Hydrated with 85 cc fluids -F/u with PCP #Endometrial Cancer -currently undergoing chemotherapy on Avastin -Followup outpatient Other resolved issues: Headache likely 2/2 hypertensive urgency Nausea and Vomiting: likely 2/2 hypertensive urgency DISPOSITION: Discharged home today in improved condition. Plan is for patient to follow up with PCP within 1-2 weeks after discharge. TIME SPENT ON DISCHARGE: Greater than 30 minutes. Vital Signs/I&Os Vital Signs Date Time Temp Pulse Resp B/P (MAP) Pulse Ox O2 Delivery O2 Flow Rate FiO2 06/03/20 08:05 105 06/03/20 08:04 145/88 06/03/20 08:00 98.1 20 98 Room Air I&O- Last 24 Hours up to 6 AM 06/03/20 06:00 Intake Total 420 ml Output Total 1000 ml Balance -580 ml Laboratory Data Labs 24H Laboratory Tests 2 06/03/20 05:23: Nucleated Red Blood Cells % (auto) 0.0, Anion Gap 6L, Glomerular Filtration Rate 50.3, Calcium Level 8.8 CBC/BMP Laboratory Tests 06/03/20 05:23 Discharge Medications Scheduled Amlodipine Besylate (Amlodipine Besylate) 5 Mg Tablet, 5 MG PO BID Cyclophosphamide (Cyclophosphamide) 50 Mg Capsule, 50 MG PO DAILY, (Reported) Gabapentin (Gabapentin) 300 Mg Capsule, 900 MG PO TID, (Reported) Phenylephrine HCl/[place] Butter (Preparation H Suppository) 1 Each Supp.rect, 1 SUP TN PRN, (Reported) Simethicone (Gas-X) 125 Mg Capsule, 2 CAP PO TID, (Reported) Scheduled PRN Acetaminophen (Acetaminophen) 500 Mg Tablet, 1,000 MG PO Q6H PRN for PAIN, (Reported) Ondansetron HCl (Ondansetron HCl) 8 Mg Tablet, 8 MG PO TIDP PRN for NAUSEA Prochlorperazine Maleate (Prochlorperazine Maleate) 10 Mg Tablet, 10 MG PO Q6HP PRN for NAUSEA Allergies Coded Allergies: Penicillins (Verified Allergy, Intermediate, HIVES, 10/10/18) Sulfa (Sulfonamide Antibiotics) (Verified Allergy, Intermediate, HIVES, 10/10/18) TAPE (Unverified Allergy, Intermediate, RASH, 01/12/16) THE PLASTIC KIND carboplatin (Verified Allergy, Intermediate, hives, 08/02/19) levofloxacin (Verified Allergy, Intermediate, skin discoloration and skin peeling, 04/30/20) erythromycin base (Verified Adverse Reaction, Intermediate, mukund sea/vomitting, 04/30/20) Janey Martin MD Jun 03, 2020 12:55
== END 2020-06-03 12:11 | disposition home or self-care (01) | DRG 305 ==
LOC: M ED 22:35 → M ED INP 22:36 → ENRESERV 05-31 02:08 → M PCU 05-31 02:54 → OBSVTOIN 06-02 10:56
PROVIDERS: ADMIT General Practice; ATTEND Internal Medicine
DX: I16.0 Hypertensive urgency (principal); N17.9 Acute kidney failure, unspecified; R51.9 Headache, unspecified; C54.1 Malignant neoplasm of endometrium; Z79.899 Other long term (current) drug therapy; Z88.0 Allergy status to penicillin; Z88.2 Allergy status to sulfonamides; Z88.8 Allergy status to other drugs, medicaments and biological substances; R11.2 Nausea with vomiting, unspecified; G47.00 Insomnia, unspecified

== ENCOUNTER → 2020-06-24 | Outpatient (REF) | payer MEDICARE, OTHER ==
[~2020-06-24] MED LIST changes: +ACET-683 PO; +AMLO1TAB24 PO; +LOSA100T50 PO
[2020-06-24 18:05] LABS: TOTAL PROTEIN 6.5 GM/DL (6.4-8.2)
[2020-06-24 18:15] LABS: TOTAL PROTEIN,RANDOM URINE 128.5 MG/DL (0.0-12.0)
[2020-06-24 18:18] LABS: HEPATITIS B SURFACE ANTIBODY NEGATIVE (POSITIVE)
[2020-06-24 18:29] LABS: HEPATITIS B SURFACE ANTIGEN NEGATIVE (NEGATIVE)
[2020-06-24 18:56] LABS: HEPATITIS C VIRUS ABY INDEX 0.1 INDEX (<0.8)
[2020-06-24 18:57] LABS: HEPATITIS B CORE ANTIBODY IGM NEGATIVE (NEGATIVE)
[2020-06-24 19:29] LABS: COMPLEMENT C3 111 MG/DL (90-180); COMPLEMENT C4 28 MG/DL (10-40)
[2020-06-29 12:00] LABS: ALBUMIN % 62.4 % (55.8-66.1)
[2020-06-29 12:01] LABS: ALBUMIN 4.06 GM/DL (3.29-5.55); ALPHA-1-GLOBULINS 0.39 GM/DL (0.17-0.41); ALPHA-2-GLOBULINS 0.93 GM/DL (0.42-0.99); ALPHA-2-GLOBULINS % 14.3 % (7.1-11.8); BETA-1-GLOBULINS 0.39 GM/DL (0.28-0.60); BETA-2-GLOBULINS 0.28 GM/DL (0.19-0.55); BETA-2-GLOBULINS % 4.3 % (3.2-6.5); GAMMA GLOBULINS 0.46 GM/DL (0.65-1.58)
[2020-06-30 16:09] LABS: ANCA-ATYPICAL <1:20 titer (Neg:<1:20); ANTI CENTROMERE ANTIBODY <0.2 AI (0.0-0.9); ANTI DS-DNA AB Negative (Negative); ANTINUCLEAR ANTIBODIES DIRECT Negative (Negative); CYTOPLASMIC NEUTROP AB ANCA-C <1:20 titer (Neg:<1:20); HEPATITIS B CORE ANTIBODY IGG Negative (Negative); PERINUCLEAR AB ANCA-P <1:20 titer (Neg:<1:20)
== END ==
LOC: M LAB REF 17:22
PROVIDERS: ATTEND Internal Medicine Nephrology
DX: R80.9 Proteinuria, unspecified (principal)

== ENCOUNTER 2020-07-15 11:43 | Outpatient (CLI) | payer MEDICARE, OTHER ==
[~2020-07-15] VITALS: Ht 170.2 cm; Wt 69.5 kg
[~2020-07-15 11:43] MED LIST changes: +ACET-897 PO; +ACET1TAB16 PO; +ALBUTEROL SULFATE 2.5 MG/0.5 ML INH NEB SOLN INH PRN; +EPINEPHrine INJ 1 MG/ML 1ML AMP IM PRN; +PRED50TA PO; +ULTR50TA8 PO; +diphenhydrAMINE 50MG/ML VIAL (J1200) IV PRN; +methylPREDNISolone 125MG 2ML VIAL IV PRN
[2020-07-15 11:45] VITALS: BP 141/71
[2020-07-15] MEDS ORDERED: FERRIC CARBOXYMALTOSE INJ 750 MG in NS 250 ML IV ONE (12:00)
[2020-07-15] MEDS ORDERED: NS 1,000 ML IV SCH (12:00)
[2020-07-15 13:00] VITALS: BP 125/68
[2020-07-15 14:00] VITALS: BP 126/65
[2020-07-15 15:15] VITALS: BP 131/75
[2020-07-20] MEDS ORDERED: SENN-80 PO (13:31)
== END 2020-07-15 15:15 | disposition home or self-care (01) ==
LOC: M INFU 11:43
PROVIDERS: ATTEND Internal Medicine Nephrology
DX: D50.9 Iron deficiency anemia, unspecified (principal); Z88.0 Allergy status to penicillin; Z88.2 Allergy status to sulfonamides; Z88.1 Allergy status to other antibiotic agents; Z88.8 Allergy status to other drugs, medicaments and biological substances
CPT/HCPCS: 96365; 96366; J1439

== ENCOUNTER 2020-07-22 13:18 | Outpatient (CLI) | payer MEDICARE, OTHER ==
[~2020-07-22] VITALS: Ht 170.2 cm; Wt 69.5 kg
[2020-07-22 13:30] VITALS: BP 115/59
[2020-07-22] MEDS ORDERED: FERRIC CARBOXYMALTOSE INJ 750 MG in NS 250 ML IV ONE ×4 (13:30)
[2020-07-22] MEDS ORDERED: NS 1,000 ML IV SCH (13:30)
[2020-07-22 15:10] VITALS: BP 123/63
[2020-07-22 15:44] VITALS: BP 132/70
[2020-07-22 17:00] VITALS: BP 133/65
[2020-07-22 17:15] VITALS: BP 132/63
== END 2020-07-22 17:15 | disposition home or self-care (01) ==
LOC: M INFU 13:18
PROVIDERS: ATTEND Internal Medicine Nephrology
DX: D50.9 Iron deficiency anemia, unspecified (principal); Z88.0 Allergy status to penicillin; Z88.1 Allergy status to other antibiotic agents; Z88.2 Allergy status to sulfonamides; Z88.8 Allergy status to other drugs, medicaments and biological substances
CPT/HCPCS: 96365; 96366; J1439

== ENCOUNTER 2020-08-03 02:14 | Emergency (ER) | payer MEDICARE, OTHER ==
[~2020-08-03] VITALS: Ht 170.2 cm; Wt 65.7 kg
[~2020-08-03 02:14] MED LIST changes: -ALBUTEROL SULFATE 2.5 MG/0.5 ML INH NEB SOLN INH PRN; +CALCCAP4 PO; -EPINEPHrine INJ 1 MG/ML 1ML AMP IM PRN; +GABA-282 PO; -GABA-843 PO; +LISI10TA22 PO; -LISI10TA4 PO; +POTA50TAB PO; +PRED10TA2 PO; -diphenhydrAMINE 50MG/ML VIAL (J1200) IV PRN; -methylPREDNISolone 125MG 2ML VIAL IV PRN
[2020-08-03 02:15] VITALS: BP 123/68
--- OUTSIDE RECORDS SUMMARY | 2020-08-03 02:23 | CCD ---
Author Author [facility] Organization [facility] Address Unknown Phone Unavailable Care Team Providers Care Quality Assurance Monitor Body Name Role Phone Rui Garsia Unavailable Unavailable Rui Garsia Unavailable Unavailable Rui Garsia Unavailable Unavailable Rui Garsia Unavailable Unavailable Rui Garsia Unavailable Unavailable Rui Garsia Unavailable Unavailable Rui Garsia Unavailable Unavailable Rui Garsia Unavailable Unavailable Rui Garsia Unavailable Unavailable Rui Garsia Unavailable Unavailable Rui Garsia Unavailable Unavailable Rui Garsia Unavailable Unavailable Rui Garsia Unavailable Unavailable Rui Garsia Unavailable Unavailable Rui Garsia Unavailable Unavailable Garsia, M Barratt PA Unavailable Unavailable Garsia, M Barratt PA Unavailable Unavailable Garsia, M Barratt PA Unavailable Unavailable Garsia, M Barratt PA Unavailable Unavailable Garsia, M Barratt PA Unavailable Unavailable Garsia, M Barratt PA Unavailable Unavailable Garsia, M Barratt PA Unavailable Unavailable Garsia, M Barratt PA Unavailable Unavailable Garsia, M Barratt PA Unavailable Unavailable Garsia, M Barratt PA Unavailable Unavailable Garsia, M Barratt PA Unavailable Unavailable Garsia, M Barratt PA Unavailable Unavailable HANNY, MAQBOOL DESHAWN MD Unavailable Unavailable HANNY, MAQBOOL DESHAWN MD Unavailable Unavailable HANNY, MAQBOOL DESHAWN MD Unavailable Unavailable HANNY, MAQBOOL DESHAWN MD Unavailable Unavailable HANNY, MAQBOOL DESHAWN MD Unavailable Unavailable HANNY, MAQBOOL DESHAWN MD Unavailable Unavailable HANNY, MAQBOOL DESHAWN MD Unavailable Unavailable HANNY, MAQBOOL DESHAWN MD Unavailable Unavailable HANNY, MAQBOOL DESHAWN MD Unavailable Unavailable HANNY, MAQBOOL DESHAWN MD Unavailable Unavailable HANNY, MAQBOOL DESHAWN MD Unavailable Unavailable HANNY, MAQBOOL DESHAWN MD Unavailable Unavailable HANNY, MAQBOOL DESHAWN MD Unavailable Unavailable HANNY, MAQBOOL DESHAWN MD Unavailable Unavailable HANNY, MAQBOOL DESHAWN MD Unavailable Unavailable HANNY, MAQBOOL DESHAWN MD Unavailable Unavailable HANNY, MAQBOOL DESHAWN MD Unavailable Unavailable HANNY, MAQBOOL DESHAWN MD Unavailable Unavailable HANNY, MAQBOOL DESHAWN MD Unavailable Unavailable HANNY, MAQBOOL DESHAWN MD Unavailable Unavailable HANNY, MAQBOOL DESHAWN MD Unavailable Unavailable HANNY, MAQBOOL DESHAWN MD Unavailable Unavailable HANNY, MAQBOOL DESHAWN MD Unavailable Unavailable HNANY, MAQBOOL DESHAWN MD Unavailable Unavailable HANNY, MAQBOOL DESHAWN MD Unavailable Unavailable HANNY, MAQBOOL DESHAWN MD Unavailable Unavailable HANNY, MAQBOOL DESHAWN MD Unavailable Unavailable HANNY, MAQBOOL DESHAWN MD Unavailable Unavailable HANNY, MAQBOOL DESHAWN MD Unavailable Unavailable HANNY, MAQBOOL DESHAWN MD Unavailable Unavailable HANNY, MAQBOOL DESHAWN MD Unavailable Unavailable HANNY, MAQBOOL DESHANW MD Unavailable Unavailable HANNY, MAQBOOL DESHAWN MD Unavailable Unavailable HANNY, MAQBOOL DESHAWN MD Unavailable Unavailable HANNY, MAQBOOL DESHAWN MD Unavailable Unavailable HANNY, MAQBOOL DESHAWN MD Unavailable Unavailable HANNY, MAQBOOL DESHAWN MD Unavailable Unavailable HANNY, MAQBOOL DESHAWN MD Unavailable Unavailable HANNY, MAQBOOL DESHAWN MD Unavailable Unavailable HANNY, MAQBOOL DESHAWN MD Unavailable Unavailable HANNY, MAQBOOL DESHAWN MD Unavailable Unavailable HANNY, MAQBOOL DESHAWN MD Unavailable Unavailable HANNY, MAQBOOL DESHAWN MD Unavailable Unavailable HANNY, MAQBOOL DESHAWN MD Unavailable Unavailable HANNY, MAQBOOL DESHAWN MD Unavailable Unavailable HANNY, MAQBOOL DESHAWN MD Unavailable Unavailable HANNY, MAQBOOL DESHAWN MD Unavailable Unavailable HANNY, MAQBOOL DESHAWN MD Unavailable Unavailable HANNY, MAQBOOL DESHAWN MD Unavailable Unavailable HANNY, MAQBOOL DESHAWN MD Unavailable Unavailable HANNY, MAQBOOL DESHAWN MD Unavailable Unavailable HANNY, MAQBOOL DESHAWN MD Unavailable Unavailable HANNY, MAQBOOL DESHAWN MD Unavailable Unavailable HANNY, MAQBOOL DESHAWN MD Unavailable Unavailable HANNY, MAQBOOL DESHAWN MD Unavailable Unavailable HANNY, MAQBOOL DESHAWN MD Unavailable Unavailable HANNY, MAQBOOL DESHAWN MD Unavailable Unavailable HANNY, MAQBOOL DESHAWN MD Unavailable Unavailable HANNY, MAQBOOL DESHAWN MD Unavailable Unavailable HANNY, MAQBOOL DESHAWN MD Unavailable Unavailable HANNY, MAQBOOL DESHAWN MD Unavailable Unavailable HANNY, MAQBOOL DESHAWN MD Unavailable Unavailable HANNY, MAQBOOL DESHAWN MD Unavailable Unavailable HANNY, MAQBOOL DESHAWN MD Unavailable Unavailable HANNY, MAQBOOL DESHAWN MD Unavailable Unavailable HANNY, MAQBOOL DESHAWN MD Unavailable Unavailable HANNY, MAQBOOL DESHAWN MD Unavailable Unavailable HANNY, MAQBOOL DESHAWN MD Unavailable Unavailable HANNY, MAQBOOL DESHAWN MD Unavailable Unavailable HANNY, MAQBOOL DESHAWN MD Unavailable Unavailable HANNY, MAQBOOL DESHAWN MD Unavailable Unavailable HANNY, MAQBOOL DESHAWN MD Unavailable Unavailable HANNY, MAQBOOL DESHAWN MD Unavailable Unavailable HANNY, MAQBOOL DESHAWN MD Unavailable Unavailable HANNY, MAQBOOL DESHAWN MD Unavailable Unavailable FORNI, R LOTUS DPM Unavailable Unavailable FORNI, R LOTUS DPM Unavailable Unavailable FORNI, R LOTUS DPM Unavailable Unavailable FORNI, R LOTUS DPM Unavailable Unavailable FORNI, R LOTUS DPM Unavailable Unavailable FORNI, R LOTUS DPM Unavailable Unavailable FORNI, R LOTUS DPM Unavailable Unavailable Re-disclosure Warning The records that you are about to access may contain information from federally-assisted alcohol or drug abuse programs. If such information is present, then the following federally mandated warning applies: This information has been disclosed to you from records protected by federal confidentiality rules (42 CFR part 2). The federal rules prohibit you from making any further disclosure of this information unless further disclosure is expressly permitted by the written consent of the person to whom it pertains or as otherwise permitted by 42 CFR part 2. A general authorization for the release of medical or other information is NOT sufficient for this purpose. The Federal rules restrict any use of the information to criminally investigate or prosecute any alcohol or drug abuse patient.The records that you are about to access may contain highly sensitive health information, the redisclosure of which is protected by Article 27-F of the [place] Public Health law. If you continue you may have access to information: Regarding HIV / AIDS; Provided by facilities licensed or operated by the [place] Office of Mental Health; or Provided by the [place] Office for People With Developmental Disabilities. If such information is present, then the following [place] mandated warning applies: This information has been disclosed to you from confidential records which are protected by state law. State law prohibits you from making any further disclosure of this information without the specific written consent of the person to whom it pertains, or as otherwise permitted by law. Any unauthorized further disclosure in violation of state law may result in a fine or shelter sentence or both. A general authorization for the release of medical or other information is NOT sufficient authorization for further disc losure. Encounters Encounter Providers Location Date Indications Data Source(s ) Outpatient Attender: LTOUS SHIPLEY DPMConsultant: DESHAWN Tiwari MD 02/17/2020 08:48:00 AM EDT - 02/17/2020 08:48:00 AM EDT [facility] Outpatient Attender: LOTUS SHIPLEY DPMConsultant: DESHAWN Tiwari MD 02/05/2020 02:24:00 PM EDT - 02/05/2020 02:24:00 PM EDT [facility] Outpatient Attender: LOTUS SHIPLEY DPMAtt polly: DESHAWN GAMINO MDConsultant: DESHAWN GAMINO MD 01/16/2020 09:05:00 AM EDT - 01/16/2020 09:05:00 AM EDT [facility] Outpatient Referrer: Afsaneh JACKSON 09/04/2019 12:46:0 0 PM EST [facility] Outpatient Referrer: Afsaneh JACKSON 08/27/2019 01:24:0 0 PM EST [facility] Outpatient Attender: DESHAWN GAMINO MDConsultant: DESHAWN Tiwari MD 08/26/2019 11:46:00 AM EST - 08/26/2019 12:46:00 PM [facility] Immunizations Vaccine Date Status Description Data Source(s) INFLUENZA VACCINE QUADRIVALENT 2019- (65 YR UP)/MF59 C.1/PF 04/14/2020 12:00:00 AM EDT completed [facility] PNEUMOCOCCAL 23-VALENT POLYSACCHARIDE VACCINE 03/27/2020 12: 00:00 AM EDT completed [facility] Medications Medication Brand Name Start Date Product Form Dose Route Admi nistrative Instructions Pharmacy Instructions Status Indications Reaction Description Data Source(s) 10 mg 07/28/2020 12:00:00 AM EST tablet 60 TAKE TWO TABLETS BY MOUTH EVERY MORNING AND TAKE ONE TABLET BY MOUTH IN THE EVENING FOR 10 DAYS, THEN TAKE ONE TABLET BY MOUTH TWICE A DAY TAKE TWO TABLETS BY MOUTH EVERY MORNING AND TAKE ONE TABLET BY MOUTH IN THE EVENING FOR 10 DAYS, THEN TAKE ONE TABLET BY MOUTH TWICE A DAY SOLD: 07/29/2020 [facility] 500 mg 07/28/2020 12:00:00 AM EST tablet,soluble 30 TAKE ONE TABLET BY MOUTH EVERY DAY TAKE ONE TABLET BY MOUTH EVERY DAY SOLD: 07/29/2020 [facility] 600 mg(1,500mg) -400 unit 07/28/2020 12:00:00 AM EST tablet 90 TAKE ONE TABLET BY MOUTH EVERY DAY TAKE ONE TABLET BY MOUTH EVERY DAY SOLD: 07/29/2020 [facility] 8.6 mg 07/20/2020 12:00:00 AM EST tablet 30 TAKE TWO TABLETS BY MOUTH TWICE A DAY FOR CONSTIPATION TAKE TWO TABLETS BY MOUTH TWICE A DAY FOR CONSTIPATION SOLD: 07/26/2020 [facility] pantoprazole 40 MG Delayed Release Oral Tablet PANTOPRAZOLE SODIUM 07/16/2020 12:00:00 AM EST tablet,delayed release (DR/EC) 60 T ALEXANDRA ONE TABLET BY MOUTH EVERY DAY TAKE ONE TABLET BY MOUTH EVERY DAY SOLD: 07/20/2020 [facility] 300-30 mg 07/09/2020 12:00:00 AM EST tablet 120 TAKE ONE TABLET BY MOUTH EVERY 6 HOURS NEEDED FOR PAIN - MAXIMUM DAILY DOSE = 4 TAKE ONE TABLET BY MOUTH EVERY 6 HOURS NEEDED FOR PAIN - MAXIMUM DAILY DOSE = 4 SOLD: 07/09/2020 [facility] 10 mg 07/03/2020 12:00:00 AM EST tablet 120 TAKE THREE TABLETS BY MOUTH EVERY MORNING AND 2 IN EVENING X 10 DAYS THEN 2 TABLETS TWO TIMES A DAY TAKE THREE TABLETS BY MOUTH EVERY MORNING AND 2 IN EVENING X 10 DAYS THEN 2 TABLETS TWO TIMES A DAY SOLD: 07/03/2020 [facility] 5 mg 07/02/2020 12:00:00 AM EST tablet 180 TAKE ONE TABLET BY MOUTH TWICE A DAY TAKE ONE TABLET BY MOUTH TWICE A DAY SOLD: 07/03/2020 [facility] pantoprazole 40 MG Delayed Release Oral Tablet PANTOPRAZOLE SODIUM 06/25/2020 12:00:00 AM EST tablet,delayed release (DR/EC) 30 T ALEXANDRA ONE TABLET BY MOUTH EVERY DAY TAKE ONE TABLET BY MOUTH EVERY DAY SOLD: 06/26/2020 [facility] 10 mg 06/24/2020 12:00:00 AM EST tablet 60 TAKE THREE TABLETS BY MOUTH TWICE A DAY TAKE THREE TABLETS BY MOUTH TWICE A DAY SOLD: 06/25/2020 [facility] 50 mg 06/16/2020 12:00:00 AM EST tablet 14 TAKE ONE TABLET BY MOUTH TWICE A DAY NEEDED - MAXIMUM DAILY DOSE = 2 TAKE ONE TABLET BY MOUTH TWICE A DAY NEEDED - MAXIMUM DAILY DOSE = 2 SOLD: 06/17/2020 [facility] doxycycline hyclate 100 MG Oral Capsule DOXYCYCLINE HYCLATE 06/05/2020 12:00:00 AM EST capsule 30 TAKE ONE CAPSULE BY MOUTH TW ICE A DAY TAKE ONE CAPSULE BY MOUTH TWICE A DAY SOLD: 06/05/2020 [facility] 5 mg 06/03/2020 12:00:00 AM EST tablet 60 TAKE ONE TABLET BY MOUTH TWICE A DAY TAKE ONE TABLET BY MOUTH TWICE A DAY SOLD: 06/03/2020 [facility] 100 mg 05/29/2020 12:00:00 AM EST tablet 90 TAKE ONE TABLET BY MOUTH AT BEDTIME TAKE ONE TABLET BY MOUTH AT BEDTIME SOLD: 05/29/2020 [facility] 20 mg 05/26/2020 12:00:00 AM EST tablet 90 TAKE ONE TABLET BY MOUTH EVERY DAY TAKE ONE TABLET BY MOUTH EVERY DAY SOLD: 05/28/2020 [facility] 8 mg 05/22/2020 12:00:00 AM EST tablet 40 TAKE ONE TABLET BY MOUTH THREE TIMES A DAY NEEDED FOR NAUSEA TAKE ONE TABLET BY MOUTH THREE TIMES A D AY NEEDED FOR NAUSEA SOLD: 05/22/2020 [facility] Lisinopril 10 MG Oral Tablet LISINOPRIL 05/22/2020 12:00:00 AM EST tab let 30 TAKE ONE TABLET BY MOUTH EVERY DAY TAKE ONE TABLET BY MOUTH EVERY DAY SOLD: 05/22/2020 [facility] 50 mg 04/17/2020 12:00:00 AM EDT capsule 30 TAKE ONE CAPSULE BY MOUTH EVERY DAY TAKE ONE CAPSULE BY MOUTH EVERY DAY SOLD: 04/19/2020 [facility] 50 mg 04/17/2020 12:00:00 AM EDT capsule 30 TAKE ONE CAPSULE BY MOUTH EVERY DAY TAKE ONE CAPSULE BY MOUTH EVERY DAY SOLD: 07/12/2020 [facility] 50 mg 04/17/2020 12:00:00 AM EDT capsule 30 TAKE ONE CAPSULE BY MOUTH EVERY DAY TAKE ONE CAPSULE BY MOUTH EVERY DAY SOLD: 05/26/2020 [facility] . UNIT 04/14/2020 12:00:00 AM EDT Injectable 1 US E DIRECTED USE DIRECTED SOLD: 04/14/2020 [facility] . UN[facility] 03/27/2020 12:00:00 AM EDT Injectable 1 RPH ADMINISTERED IMMUNIZATION RPH ADMINISTERED IMMUNIZATION SOLD: 03/27/2020 [facility] 300 mg 03/17/2020 12:00:00 AM EDT capsule 270 TAKE THREE CAPSULES BY MOUTH THREE TIMES A DAY MAXIMUM DAILY DOSE = 9 TAKE THREE CAPSULES BY MOUTH THREE TIMES A DAY MAXIMUM DAILY DOSE = 9 SOLD: 07/29/2020 [facility] 300 mg 03/17/2020 12:00:00 AM EDT capsule 270 TAKE THREE CAPSULES BY MOUTH THREE TIMES A DAY MAXIMUM DAILY DOSE = 9 TAKE THREE CAPSULES BY MOUTH THREE TIMES A DAY MAXIMUM DAILY DOSE = 9 SOLD: 06/26/2020 [facility] 300 mg 03/17/2020 12:00:00 AM EDT capsule 270 TAKE THREE CAPSULES BY MOUTH THREE TIMES A DAY MAXIMUM DAILY DOSE = 9 TAKE THREE CAPSULES BY MOUTH THREE TIMES A DAY MAXIMUM DAILY DOSE = 9 SOLD: 04/21/2020 [facility] 300 mg 03/17/2020 12:00:00 AM EDT capsule 270 TAKE THREE CAPSULES BY MOUTH THREE TIMES A DAY MAXIMUM DAILY DOSE = 9 TAKE THREE CAPSULES BY MOUTH THREE TIMES A DAY MAXIMUM DAILY DOSE = 9 SOLD: 03/18/2020 [facility] 0.5 mg 03/08/2020 12:00:00 AM EDT tablet 2 TAKE 1 TABLET BY MOUTH 30 MINUTES PRIOR TO SCAN MAXIMUM DAILY DOSE = 1 TAKE 1 TABLET BY MOUTH 30 MINUTES PRIOR TO SCAN MAXIMUM DAILY DOSE = 1 SOLD: 03/09/2020 [facility] 0.5 mg 12/19/2019 12:00:00 AM EDT tablet 2 TAKE ONE TABLET BY MOUTH ONCE 30 MINUTES PRIOR TO SCAN TAKE ONE TABLET BY MOUTH ONCE 30 MINUTES PRIOR TO SCAN SOLD: 12/23/2019 [facility] 60 mg 12/02/2019 12:00:00 AM EDT capsule,delayed release (DR/EC) 30 TAKE ONE CAPSULE BY MOUTH EVERY DAY TAKE ONE CAPSULE BY MOUTH EVERY DAY SOLD: 12/07/2019 [facility] 30 mg 12/02/2019 12:00:00 AM EDT capsule,delayed release (DR/EC) 14 TAKE ONE CAPSULE BY MOUTH EVERY DAY TAKE ONE CAPSULE BY MOUTH EVERY DAY SOLD: 12/07/2019 [facility] 25 mg 09/11/2019 12:00:00 AM EST tablet 60 TAKE ONE TABLET BY MOUTH TWICE A DAY TAKE ONE TABLET BY MOUTH TWICE A DAY SOLD: 09/15/2019 [facility] 1-0.05 % 09/10/2019 12:00:00 AM EST cream 60 APPLY TO AFFECTED AREAS ALL OVER BODY TWO TIMES A DAY APPLY TO AFFECTED AREAS ALL OVER BODY TWO TIMES A DAY SOLD: 09/11/2019 [facility] 200 mg 08/29/2019 12:00:00 AM EST tablet 20 TAKE TWO TABLETS BY MOUTH EVERY DAY FOR 10 DAYS TAKE TWO TABLETS BY MOUTH EVERY DAY FOR 10 DAYS SOLD: 08/30/2019 [facility] 200 mg 08/23/2019 12:00:00 AM EST tablet 20 TAKE TWO TABLETS BY MOUTH ONCE DAILY FOR 10 DAYS TAKE TWO TABLETS BY MOUTH ONCE DAILY FOR 10 DAYS SOLD: 08/23/2019 [facility] 300 mg 08/22/2019 12:00:00 AM EST capsule 270 TAKE 3 CAPSULES BY MOUTH THREE TIMES A DAY TAKE 3 CAPSULES BY MOUTH THREE TIMES A DAY SOLD: 01/08/2020 [facility] 300 mg 08/22/2019 12:00:00 AM EST capsule 270 TAKE 3 CAPSULES BY MOUTH THREE TIMES A DAY TAKE 3 CAPSULES BY MOUTH THREE TIMES A DAY SOLD: 12/07/2019 [facility] 300 mg 08/22/2019 12:00:00 AM EST capsule 270 TAKE 3 CAPSULES BY MOUTH THREE TIMES A DAY TAKE 3 CAPSULES BY MOUTH THREE TIMES A DAY SOLD: 08/23/2019 [facility] 300 mg 08/22/2019 12:00:00 AM EST capsule 270 TAKE 3 CAPSULES BY MOUTH THREE TIMES A DAY TAKE 3 CAPSULES BY MOUTH THREE TIMES A DAY SOLD: 02/13/2020 [facility] 300 mg 08/22/2019 12:00:00 AM EST capsule 270 TAKE 3 CAPSULES BY MOUTH THREE TIMES A DAY TAKE 3 CAPSULES BY MOUTH THREE TIMES A DAY SOLD: 11/01/2019 [facility] 300 mg 08/22/2019 12:00:00 AM EST capsule 270 TAKE 3 CAPSULES BY MOUTH THREE TIMES A DAY TAKE 3 CAPSULES BY MOUTH THREE TIMES A DAY SOLD: 09/26/2019 [facility] 100,000 unit/mL 08/20/2019 12:00:00 AM EST suspension 600 SWISH AND SWALLOW 5ML BY MOUTH FOUR TIMES A DAY SWISH AND SWALLOW 5ML BY MOUTH FOUR TIMES A DAY SOLD: 08/20/2019 [facility] 0.05 % 08/20/2019 12:00:00 AM EST ointment 50 APPLY TO AFFECTED AREA(S) ON CHEST TWO TIMES A DAY APPLY TO AFFECTED AREA(S) ON CHEST TWO TIMES A DAY JONES [facility] 500 mg 08/17/2019 12:00:00 AM EST tablet 5 TAKE ONE TABLET BY MOUTH EVERY DAY FOR 5 DAYS TAKE ONE TABLET BY MOUTH EVERY DAY FOR 5 DAYS SOLD: 08/17/2019 [facility] 750 mg 08/08/2019 12:00:00 AM EST tablet 7 TAKE ONE TABLET BY MOUTH EVERY DAY FOR 7 DAYS TAKE ONE TABLET BY MOUTH EVERY DAY FOR 7 DAYS SOLD: 08/09/2019 [facility] 8.6 mg 08/02/2019 12:00:00 AM EST tablet 100 TAKE TWO TABLETS BY MOUTH TWICE A DAY FOR CONSTIPATION TAKE TWO TABLETS BY MOUTH TWICE A DAY FOR CONSTIPATION SOLD: 08/02/2019 [facility] Suprep Bowel Prep Kit Suprep Bowel Prep Kit 08/01/2019 12:00:00 AM EST active [facility] ([facility]) 17.5-3.13-1.6 gram 08/01/2019 12:00:00 AM EST recon soln 354 TAKE DIRECTED TAKE DIRECTED SOLD: 08/02/2019 [facility] 10 mg 07/18/2019 12:00:00 AM EST tablet 120 TAKE ONE TABLET BY MOUTH EVERY 6 HOURS NEEDED FOR NAUSEA TAKE ONE TABLET BY MOUTH EVERY 6 HOURS A S NEEDED FOR NAUSEA SOLD: 07/19/2019 [facility] 300 mg 05/20/2019 12:00:00 AM EST capsule 270 TAKE THREE CAPSULES BY MOUTH THREE TIMES A DAY TAKE THREE CAPSULES BY MOUTH THREE TIMES A DAY SOLD: 06/20/2019 [facility] 300 mg 05/20/2019 12:00:00 AM EST capsule 270 TAKE THREE CAPSULES BY MOUTH THREE TIMES A DAY TAKE THREE CAPSULES BY MOUTH THREE TIMES A DAY SOLD: 07/19/2019 [facility] Insurance Providers Payer name Policy type / Coverage type Policy ID Covered constitution party ID Covered constitution party's relationship to real Policy Real Plan Information MEDICARE [id number] SP [id number] [facility] [id number] SP [id number] [facility] O [id number] S [id number] MEDICARE C [id number] S [id number] [facility] [id number] 18 [id number] MEDICARE PART A [facility] [id number] 18 [id number] MEDICARE PART A [facility] [id number] 18 [id number] MEDICARE PART A -O/P [id number] 18 [id number] [facility] [id number] 18 [id number] MEDICARE PART A -O/P [id number] 18 [id number] [facility] -RECURRING [id number] ARET 18 [id number] MEDICARE -RECURRING [id number] 18 [id number] UMR -RECURRING [id number] MEDICARE [id number] SP [id number] A R [facility] [id number] SP [id number] [facility] [id number] SP [id number] [facility] -O/P [id number] 18 [id number] MEDICARE C [id number] S [id number] A [facility] PPO O [id number] S [id number] [facility] [id number] 18 [id number] MEDICARE PART A -CLINIC [id number] 18 [id number] Medicare C [id number] SELF [id number] A [place] F [id number] SELF [id number] [facility] [id number] SP [id number] [facility] [id number] SP [id number] [employer] PPO O [id number] S [id number] [facility] U [id number] Self [id number] MEDICARE A [id number] Self [id number] A MEDICARE -O/P [id number] 18 [id number] Medicare C [id number] SELF [id number] A [facility] [id number] SP [id number] [facility] [id number] SP [id number] [facility] [id number] SP [id number] Problems, Conditions, and Diagnoses Code Display Name Description Problem Type Effective Dates Data Source(s) G629 Polyneuropathy, unspecified Polyneuropathy, unspecifie d Diagnosis 02/17/2020 08:48:00 AM EDT [facility] M2042 Other hammer toe(s) (acquired), left regino t Other hammer toe(s) (acquired), left foot Diagnosis 02/17/2020 08:48:00 AM EDT [facility] M2041 Other hammer toe(s) (acquired), right fo ot Other hammer toe(s) (acquired), right foot Diagnosis 02/17/2020 08:48:00 AM EDT [facility] [id number] Encounter for other orthopedic aftercare Encounter for other orthopedic aftercare Diagnosis 02/17/2020 08:48:00 AM EDT [facility] L608 Other nail disorders Other nail disorders Diagnosis 02/05/2020 02:24:00 PM EDT [facility] J189 Pneumonia, unspecified organism Pneumonia, unspecified organism Diagnosis 08/26/2019 11:46:00 AM [facility] Surgeries/Procedures Procedure Description Date Indications Data Source(s) Avulsion Nail Plate Simple Single 02/05/2020 12:00:00 AM EDT [facility] ([facility]) Debridement Nails Any Method 1-5 01/16/2020 12:00:00 A M EDT [facility] ([facility]) UPPER NDSC BIOPSY SINGLE/MULTIPLE 08/05/2019 12:00:00 AM EST [facility] ([facility]) COLONOSCOPY FLX DX W/WO COLLJ SPECIMENS 08/05/2019 12: 00:00 AM EST [facility] ([facility]) Results ID Date Data Source [id number] 08/27/2019 05:42:[address] [facility] [address] [place] [address] PHONE: [phone] FAX: [phone] Name .................. : SHAUN Galan Acct Number.................. : [id number] ROOM. ................. : MR Number ................... : [id number] Stay type ............. : O/P Discharge Date......... ... : 08/26/19 Admit Date ....... .. : 08/26/19 Admit Phys .................... : HANNY SOSA Date of ....... : 1950 Family Phys ................... : HANNY SOSA Phone .................. : [phone] Age ................................ : 69 Film# .................. .:[id number] Sex ................................. : F Unsigned transcriptions are preliminary reports and do not represent a medical or legal document CHEST 2 VIEWS 11035 COMPLETE:08/26/19 19:30 DLA 29050 (REASON FOR CHEST: PNEUMONIA CHEST X-RAY: PA AND LATERAL VIEWS HISTORY: Pneumonia. No prior examination available for comparison. FINDINGS: Lung enrique are clear. The heart and mediastinum are normal. A right jugular gerard catheter has its tip in the superior vena cava. IMPRESSION: No acute disease in the lungs or mediastinum. Electronically Reviewed and Signed By Sergio Duff MD , 08/27/19 17:42, MRA Transcribe Initials: DZ , Transcribe Date: 08/26/19 20:57, Dictation Date: Copy for: HANNY HESS via modem Copy for: 710 MED REC Page 1 of 1 Name Value Range Interpretation Code Description Data Ashley rce(s) Supporting Document(s) ID Date Data Source [id number] 08/05/2019 02:38:00 PM EST [facility] ([facility]) Name Value Range Interpretation Code Description Data Ashley rce(s) Supporting Document(s) Surgical pathology study (SEE NOTE) MEDE NT ([facility]) <content>FINAL DIAGNOSIS</content>
< content></content>
<content>A - Gastric antrum, biopsy:</content>
<content>No significant pathologic change.</content>
<content>No Helicobacter organisms identified.</content>
<content></content>
<content>B - Esophagus, below Z line, biopsy:</content>
<content>Fragments of gastric mucosa with no significant pathologic change.</content>
<content>No intestinal metaplasia identified.</content>
<content>No squamous esophageal mucosa is noted.</content>
<content>08/07/2019 - 1147</content>
<content></content>
<content>CLINICAL DIAGNOSIS</content>
<content></content>
<content>Heartburn, right lower quadrant pain, early satiety</content>
<content>08/06/2019 - 1304</content>
<content></content>
<content>GROSS DIAGNOSIS</content>
<content></content>
<content>A - Received in formalin labeled "biopsy antrum R/O H. pylori" are two</content>
<content>webb fragments of mucosa measuring between 0.2 & 0.3 cm. All in one.</content>
<content></content>
<content>B - Received in formalin labeled "biopsy below Z line R/O Partida's" are</content>
<content>three webb fragments of mucosa measuring between 0.2 & 0.4 cm. All in</content>
<content>one.</content>
<content>- BP</content>
<content>08/06/2019 - 1304</content>
<content></content>
<content>Signed ARTEMIO PIMENTEL MD 08/07/2019 1233</content>
<content></content> Procedure Social History Code Duration Value Status Description Data Source(s ) Smoking 02/05/2020 12:00:00 AM EDT Never Smoked Cigars complet ed Never Smoked Cigars [facility] ([facility]) Smoking 01/16/2020 12:00:00 AM EDT Patient has never smoked co mpleted Patient has never smoked [facility] ([facility]) Vital Signs ID Date Data Source UNK Name Value Range Interpretation Code Description Data Source(s) Body weight 81.648 kg 81.648 kg [facility] ([facility]) Body mass index (BMI) [Ratio] 28.2 kg/m2 28.2 k g/m2 [facility] ([facility]) Heart rate 67 /min 67 /min [facility] ([facility]) Diastolic blood pressure 83 mm[Hg] 83 mm[Hg] [facility] ([facility]) Systolic blood pressure 131 mm[Hg] 131 mm[Hg] M EDENT ([facility]) Body weight 180.00 [lb_av] 180.00 [lb_av] MEDEN T ([facility]) Body height 67 [in_i] 67 [in_i] [facility] ([facility]) 5'7"
[2020-08-03] MEDS ORDERED: PHENAZOPYRIDINE 100 MG TAB PO ONE (03:15)
[2020-08-03] MEDS ORDERED: NITROFURANTOIN (MACROBID) 100 MG CAP PO ONE (03:30)
[2020-08-03] MEDS ORDERED: PYRI1TAB5 PO (03:32)
[2020-08-03] MEDS ORDERED: MACR100C43 PO (03:32)
--- OUTSIDE RECORDS SUMMARY | 2020-08-03 04:23 | CCD ---
Author Author [facility] Organization [facility] Address Unknown Phone Unavailable Care Team Providers Care Physiology Teacher Name Role Phone Rui Garsia Unavailable Unavailable Rui Garsia Unavailable Unavailable Rui Garsia Unavailable Unavailable Rui Garsia Unavailable Unavailable Rui Garsia Unavailable Unavailable Rui Garsia Unavailable Unavailable Rui Garsai Unavailable Unavailable Rui Garsia Unavailable Unavailable Rui [...] MAQBOOL DESHAWN MD Unavailable Unavailable HANNY, MAQBOOL DEHSAWN MD Unavailable Unavailable HANNY, MAQBOOL DESHAWN MD [...] is protected by Article 27-F of the [facility] Public Health law. If you continue you may have access to information: Regarding HIV / AIDS; Provided by facilities licensed or operated by the [facility] Office of Mental Health; or Provided by the [facility] Office for People With Developmental Disabilities. If such information is present, then the following [facility] mandated warning applies: This information has been [...] law may result in a fine or senior care sentence or both. A general authorization for the release of medical or other information is NOT sufficient authorization for further disc losure. Encounters Encounter Providers Location Date Indications Data Source(s ) Outpatient Attender: LOTUS SHIPLEY DPMConsultant: DESHAWN Tiwari MD 02/17/2020 08:48:00 AM EDT - 02/17/2020 08:48:00 AM EDT [facility] Outpatient Attender: LOTUS SHIPLEY DPMConsultant: DESHAWN Tiwari MD 02/05/2020 02:24:00 PM EDT - 02/05/2020 02:24:00 PM EDT [facility] Outpatient Attender: LOTUS SHIPLEY DPMAtt polly: DESHAWN GAMINO MDConsultant: DESHAWN GAMINO MD 01/16/2020 09:05:00 AM EDT - 01/16/2020 09:05:00 AM EDT [facility] Outpatient Referrer: Afsaneh JACKSON 09/04/2019 12:46:0 0 PM EST [facility] Rad[facility] Imaging Outpatient Referrer: Afsaneh JACKSON 08/27/2019 01:24:0 0 PM EST [facility] Imaging Outpatient Attender: DESHAWN GAMINO MDConsultant: DESHAWN Tiwari MD 08/26/2019 11:46:00 AM EST - 08/26/2019 12:46:00 PM [facility] Immunizations Vaccine Date Status Description Data Source(s) [...] Kit 08/01/2019 12:00:00 AM EST active [facility] ([employer] [facility]) 17.5-3.13-1.6 gram 08/01/2019 12:00:00 AM EST [...] type / Coverage type Policy ID Covered alliance party ID Covered alliance party's relationship to real Policy Rael Plan Information MEDICARE [id number] SP [id number] [facility] [id number] SP [id number] [facility] O [id number] S [id number] MEDICARE C [id number] S [id number] [facility] [id number] 18 [id number] MEDICARE PART A [facility] [id number] 18 [id number] MEDICARE PART A [facility] [id number] 18 [id number] MEDICARE PART A -O/P [id number] 18 [id number] [facility] [id number] 18 [id number] MEDICARE PART A -O/P [id number] 18 [id number] [facility] -RECURRING [id number] ARET 18 [id number] MEDICARE -RECURRING [id number] 18 [id number] [facility] -RECURRING [id number] MEDICARE [id number] SP [id number] A R [facility] [id number] SP [id number] [employer] [id number] SP [id number] [facility] -O/P [id number] 18 [id number] MEDICARE C [id number] S [id number] A [employer] PPO O [id number] S [id number] [facility] [id number] 18 [id number] MEDICARE PART A -CLINIC [id number] 18 [id number] Medicare C [id number] SELF [id number] A [place] F [id number] SELF [id number] [employer] [id number] SP [id number] [id number] SP [id number] PPO O [id number] S [id number] [facility] U [id number] Self [id number] MEDICARE A [id number] Self [id number] A MEDICARE -O/P [id number] 18 [id number] Medicare C [id number] SELF [id number] A [employer] [id number] SP [id number] [employer] [id number] SP [id number] [employer] [id number] SP [id number] Problems, Conditions, and Diagnoses Code Display Name Description Problem Type Effective Dates Data Source(s) G629 Polyneuropathy, unspecified Polyneuropathy, unspecifie d Diagnosis 02/17/2020 08:48:00 AM EDT [facility] M2042 Other hammer toe(s) (acquired), left regino t Other hammer toe(s) (acquired), left foot Diagnosis 02/17/2020 08:48:00 AM EDT [facility] M2041 Other hammer toe(s) (acquired), right fo ot Other hammer toe(s) (acquired), right foot Diagnosis 02/17/2020 08:48:00 AM EDT [facility] Z4789 Encounter for other orthopedic aftercare Encounter for other orthopedic aftercare Diagnosis 02/17/2020 08:48:00 AM EDT [facility] L608 Other nail disorders Other nail disorders Diagnosis 02/05/2020 02:24:00 PM EDT [facility] J189 Pneumonia, unspecified organism Pneumonia, unspecified organism Diagnosis 08/26/2019 11:46:00 AM [facility] Surgeries/Procedures Procedure Description Date Indications Data Source(s) Avulsion Nail Plate Simple Single 02/05/2020 12:00:00 AM EDT [facility] ([facility]) Debridement Nails Any Method 1-5 01/16/2020 12:00:00 A M EDT [facility] ([facility]) UPPER NDSC BIOPSY SINGLE/MULTIPLE 08/05/2019 12:00:00 AM EST [facility] ([facility]) COLONOSCOPY FLX DX W/WO COLLJ SPECIMENS 08/05/2019 12: 00:00 AM EST [facility] ([facility]) Results ID Date Data Source [id number] 08/27/2019 05:42:00 PM [facility] [address] [place] [address] PHONE: [phone] FAX: [phone] Name .................. : SHAUN Galan Acct Number.................. : [id number] ROOM. ................. : MR Number ................... : [id number] Stay type ............. : O/P Discharge Date......... ... : 08/26/19 Admit Date ....... .. : 08/26/19 Admit Phys .................... : HANNY SOSA Date of ....... : 1950 Family Phys ................... : HANNY SOSA Phone .................. : [phone] Age ................................ : 69 Film# .................. .:[id number] Sex ................................. : F Unsigned transcriptions are preliminary reports and do not represent a medical or legal document CHEST 2 VIEWS [id number] COMPLETE:08/26/19 19:30 DLA [id number] (REASON FOR CHEST: PNEUMONIA CHEST X-RAY: PA [...] rce(s) Supporting Document(s) ID Date Data Source [id number] 08/05/2019 02:38:00 PM EST [facility] ([facility]) Name Value Range Interpretation Code Description Data [...] Cigars complet ed Never Smoked Cigars [facility] ([facility]) Smoking 01/16/2020 12:00:00 AM EDT Patient has never smoked co mpleted Patient has never smoked [facility] ([facility]) Vital Signs ID Date Data Source UNK Name Value Range Interpretation Code Description Data Source(s) Body weight 81.648 kg 81.648 kg [facility]) Body mass index (BMI) [Ratio] 28.2 kg/m2 28.2 k g/m2 [facility] ([facility]) Heart rate 67 /min 67 /min [facility]) Diastolic blood pressure 83 mm[Hg] 83 mm[Hg] [facility] ([facility]) Systolic blood pressure 131 mm[Hg] 131 mm[Hg] M EDENT ([facility]) Body weight 180.00 [lb_av] 180.00 [lb_av] MEDEN T ([facility]) Body height 67 [in_i] 67 [in_i] [facility] ([facility]) 5'7"
[2020-08-12] MEDS ORDERED: FENT50DI5 TD (14:29)
[2020-08-12] MEDS ORDERED: CYCL1CAP2 PO (15:03)
[2020-08-12] MEDS ORDERED: LORA1TAB4 PO (15:47)
[2020-08-12] MEDS ORDERED: MORP15TA2 PO (15:47)
[2020-08-12] MEDS ORDERED: DICY10CA13 PO (15:47)
[2020-08-13] MEDS ORDERED: FENT50DI5 TD (16:25)
[2020-08-20] MEDS ORDERED: PANT40TA29 PO (13:46)
[2020-08-20] MEDS ORDERED: MIRA3350 PO (13:46)
== END 2020-08-03 04:42 | disposition home or self-care (01) ==
LOC: M ED 02:14
DX: N39.0 Urinary tract infection, site not specified (principal); C54.1 Malignant neoplasm of endometrium; C78.6 Secondary malignant neoplasm of retroperitoneum and peritoneum; Z88.0 Allergy status to penicillin; Z88.1 Allergy status to other antibiotic agents; Z88.2 Allergy status to sulfonamides; Z88.8 Allergy status to other drugs, medicaments and biological substances; Z91.048 Other nonmedicinal substance allergy status; Z79.899 Other long term (current) drug therapy

== ENCOUNTER → 2020-08-27 | Outpatient (REF) ==
[~2020-08-27] MED LIST changes: +DICY10CA13 PO; +FENT50DI5 TD; +LORA1TAB4 PO; +MACR100C43 PO; +MIRA3350 PO; +PANT40TA29 PO; +PYRI1TAB5 PO
== END ==
LOC: M LAB REF 08-26 11:32
PROVIDERS: ATTEND Physician Assistant Medical
DX: Z79.899 Other long term (current) drug therapy (principal)

== ENCOUNTER → 2020-09-15 | Outpatient (CLI) | payer MEDICARE, OTHER ==
[~2020-09-15] MED LIST changes: +D31000TA2 PO; +DURA75DI2 TOP; +ELIQ5TAB PO; +GASTROGRAFIN SOLUTION 30ML (Q9963) As Ordered ONE; +ISOVUE-370 76% 100ML VIAL As Ordered ONE; +XANA0.5T PO
--- NOTE | 2020-09-15 18:07 | REP ---
INDICATION: ENDOMETRIAL CA. COMPARISON: 04/20/2020 TECHNIQUE: Axial noncontrast images from the lung bases to the pubic symphysis with oral contrast. Coronal and sagittal reformations obtained. (IV infiltration during examination and contrast does not opacify the abdomen and pelvis.) This CT examination was performed using the following dose reduction techniques: Automated exposure control, adjustment of mA and/or kv according to the patient's size, and the use of iterative reconstruction technique. FINDINGS: Liver demonstrates multiple scattered new lesions compatible with metastatic disease measuring up to approximately 2 cm along the posterior aspect of the right hepatic lobe. Small amount of ascites is appreciated primarily in a right upper quadrant/perihepatic distribution. Scattered peritoneal metastatic implants have increased in size as compared to prior examination. As example, a peritoneal mass along the anterior mid abdomen (image 65) currently measures roughly 4.1 x 2.8 cm and previously measured 2.7 x 1.7 cm. Spleen, pancreas, gallbladder, bilateral adrenal glands and kidneys are essentially normal by noncontrast evaluation. No evidence for bowel obstruction or acute inflammatory process. Pelvis demonstrates normal bladder and increased soft tissue at the level of the cervix again consistent with recurrence/metastatic disease (images 107-115). No ascites. No free air. Abdominal aorta without aneurysm or dissection. Musculoskeletal structures demonstrate degenerative changes without obvious focal osseous metastatic lesion identified. IMPRESSION: 1. New hepatic lesions and increased peritoneal metastatic mass lesions throughout the abdomen and pelvis including suspected focal recurrence at the level of the cervix. <Electronically signed by Jules Grande > 09/15/20 [id number]
--- NOTE | 2020-09-15 18:07 | REP ---
INDICATION: ENDOMETRIAL CA COMPARISON: 04/20/2020 TECHNIQUE: Axial noncontrast images from the thoracic inlet to the upper abdomen with coronal and sagittal reformations. (IV infiltration during examination and contrast does not opacify the chest.) This CT examination was performed using the following dose reduction techniques: Automated exposure control, adjustment of mA and/or kv according to the patient's size, and use of iterative reconstruction technique. FINDINGS: Mild bibasilar atelectasis is appreciated along with small subpleural densities along the posterior aspects of the lower lobes which represent new findings as compared to prior examination. No further intraparenchymal nodule or mass lesion identified. No pleural effusion. No pneumothorax. Tracheobronchial tree demonstrates mild chronic bronchiectasis. No significant axillary, hilar, or mediastinal adenopathy is appreciated. Mediastinum demonstrates atherosclerotic changes to the thoracic aorta and coronary arteries without aortic aneurysm. No cardiomegaly or pericardial effusion. Ndhehw-N-Ilib identified with tip in the SVC. Surrounding musculoskeletal structures without acute osseous abnormality. IMPRESSION: 1. Minimal scattered atelectasis. 2. Small subpleural noncalcified densities along the posterior lower lobes representing a change from prior examination. Findings are nonspecific but warrant short-term follow-up given the patient's history of malignancy and metastatic disease. <Electronically signed by Jules Grande > 09/15/20 [id number]
== END ==
LOC: M RAD 15:44
PROVIDERS: ATTEND Internal Medicine Medical Oncology
DX: C54.1 Malignant neoplasm of endometrium (principal)
CPT/HCPCS: 71260; 74177; Q9963; Q9967